=== PATIENT | female | born 1980 | race Caucasian/White ===

== ENCOUNTER 2019-09-09 09:15 | Outpatient (CLI) | payer MEDICAID, SELFPAY ==
--- NOTE | 2019-09-09 09:29 | MR_ITS ---
WS: [id number] MRI HEAD WITHOUT CONTRAST TECHNIQUE: Sagittal T1, T2 axial, T2 axial FLAIR, axial and coronal T1 images, axial susceptibility w eighted imaging, axial diffusion weighted images, and coronal T2 images were obtained. CLINICAL INFORMATION: DIZZINESS;HEADACHE COMPARISON: None. FINDINGS: No evidence of restricted diffusion to suggest acute ischemia. Ventricular system and basal cisterns are patent. Normal midline structures. Visualized upper cervical spine is normal. No suspicious intra cranial signal abnormalities. Normal camargo-white differentiation. No extra-axial fluid collections. Mi nimal low-lying cerebellar tonsils is incidental. Normal posterior fossa. Normal vascular flow voids at the skull base. Mild mucosal thickening in the paranasal sinuses involving the ethmoid air cells and maxillary sinuses. Mild Polypoid mucosal thicke gali in the maxillary sinuses. Mastoid air cells are well aerated. Temporal lobes and hippocampal for mations are normal in appearance. Normal optic chiasm and pituitary infundibulum. MR/MR head wo con* [id number] IMPRESSION: 1. No evidence of restricted diffusion to suggest acute ischemia. 2. No suspicious intracranial signal abnormalities. No hydrocephalus. 3. Mild mucosal thickening in the paranasal sinuses. Mastoid air cells are wel l aerated. 4. Temporal lobes and hippocampal formations are normal in appearance. 5. No hemosiderin on susceptibly weighted images.
== END 2019-09-09 09:16 | disposition home or self-care (01) ==
LOC: RADSHAW 09:25
PROVIDERS: Family Provider Family Medicine; PCP Family Medicine; Visit Provider Nurse Practitioner Family
DX: R42 Dizziness and giddiness (principal); R51 Headache
CPT/HCPCS: 70551

== ENCOUNTER → 2019-10-19 13:27 | Outpatient (BNVA) | payer MEDICAID, SELFPAY | PROVIDERS: Family Provider Family Medicine; PCP Family Medicine; Visit Provider Nurse Practitioner Family | DX: N39.0 Urinary tract infection, site not specified (principal) | CPT/HCPCS: 81003; 87804 ==

== ENCOUNTER → 2020-03-13 11:28 | Outpatient (BNVA) | payer MEDICAID, SELFPAY | PROVIDERS: Family Provider Family Medicine; PCP Family Medicine; Visit Provider Urology | DX: N39.0 Urinary tract infection, site not specified (principal) | CPT/HCPCS: 80053; 87077; 87086; 87186 ==

== ENCOUNTER 2020-05-23 12:34 | Outpatient (CLI) | payer MEDICAID, SELFPAY ==
--- NOTE | 2020-05-23 12:42 | XR_ITS ---
WS: [id number] KNEE RIGHT TECHNIQUE: 3 views of the right knee CLINICAL INFORMATION: RIGHT KNEE PAIN COMPARISON: None. FINDINGS: Osteopenia. Hypertrophic changes along the joint line. Hypertrophic patella. Prior screw tracts upper tibia. Sclerotic focus or methacrylate involving the proximal tibia. XR/XR knee RT 3V* [id number] IMPRESSION: 1. Osteopenia. 2. No acute fractures. 3. Moderate arthritis with medial and lateral compartment narrowing worse invo lving the lateral joint compartment. 4. No acute fractures.
== END 2020-05-23 12:35 | disposition home or self-care (01) ==
LOC: RADWPI 12:41
PROVIDERS: PCP Family Medicine; Visit Provider Nurse Practitioner Family
DX: M85.861 Other specified disorders of bone density and structure, right lower leg (principal); M17.11 Unilateral primary osteoarthritis, right knee
CPT/HCPCS: 73562

== ENCOUNTER → 2020-07-19 08:50 | Outpatient (BNVA) | payer MEDICAID, SELFPAY | PROVIDERS: PCP Internal Medicine; Referring Provider Nurse Practitioner Family; Visit Provider Specialist | DX: M25.532 Pain in left wrist (principal); R20.0 Anesthesia of skin; R20.2 Paresthesia of skin | CPT/HCPCS: 95908 ==

== ENCOUNTER 2020-12-17 02:34 | Emergency (ER) | payer MEDICAID, SELFPAY ==
[2020-12-17 02:50] VITALS: BP 103/70; PULSE 86; RESP 17; TEMP 36.6; O2SAT 100; BMI 38.2
[2020-12-17] MEDS: ondansetron 2 mg/ML SDV 2 mL 4 MG IVP ×2 (03:19→06:36)
[2020-12-17] MEDS: sodium chloride 0.9% 1,000 ML 999 ML IV (03:19)
--- NOTE | 2020-12-17 03:25 | ED_ITS ---
HPI - Abdominal Pain General: Chief Complaint: Abdominal Pain Stated Complaint: n/v/d stomach cramps Time Seen by Provider: 12/17/20 03:01 History of Present Illness: HPI narrative: 40-year-old female presenting with abdominal cramping, pain, vomiting and diarrhea for the past 2 days or so. She was worse tonight. She denies fever. No blood in the stool. She has a history of gastric bypass MD elicited complaint: abdominal pain Pertinent past history: other Onset (ago): day(s) Pain Consistency: constant Location: Diffuse and Epigastric Severity: moderate Quality: cramping Radiation: none Migration to: no migration Exacerbating factors: eating Relieving factors: nothing Associated Symptoms: Reports change in stool character, diarrhea, nausea and vomiting; Denies dysuria and fever(s) Related Data: Date of Last Menstrual Period: 11/30/20 Review of Systems Const: Denies: fever(s) Eyes: Denies: change in vision ENMT: Denies: odynophagia or sinus pain Card: Denies: chest pain, palpitations or irregular heart rhythm Resp: Denies: dyspnea, productive cough, non-productive cough or wheezing GI: Reports: nausea, vomiting, diarrhea and change in stool character : Denies: dysuria Musc: Denies: neck pain Skin/Breast: Denies: rash or erythema Neuro: Reports: headache(s); Denies: dizziness or vertigo Psych: Denies: anxiety PFS ED PFSH: Medical History (Updated 12/17/20 @ 04:33 by Sahil Roland DO) Recurrent UTI Social History (Updated 10/19/19 @ 13:26 by Otilia Hanson LPN) Smoking and tobacco status: current every day smoker Female Reproductive History: Date of last menstrual period: 11/30/20 Physical Exam Const: GENERAL APPEARANCE: well developed ORIENTATION/CONSCIOUSNESS: Yes oriented to person, Yes oriented to place and Yes oriented to time HENMT: COMMON NORMALS: normocephalic, external ears normal and Normal external nose present HEAD & SCALP: normocephalic FACE & SINUS: normal facial exam NOSE: Normal external nose present and No nasal discharge present EXTERNAL EAR: Yes external ears normal Eye: COMMON NORMALS: Equal, round and reactive pupils present, EOMs intact bilaterally and conjunctivae normal EYELID: eyelids normal CONJUNCTIVA: Yes conjunctivae normal PUPIL: Yes Equal, round and reactive pupils present Neck/C-Spine: GENERAL: No tracheal deviation Chest: COMMONS NORMALS: normal inspection of the chest CHEST: No tenderness Resp: COMMON NORMALS: clear to auscultation bilaterally EFFORT & INSPECTION: No tachypneic, No respiratory distress, No retractions, No uses accessory muscles and No tracheal deviation AUSCULTATION: clear to auscultation bilaterally, no rhonchi, no wheezes and lung sounds not diminished Cardio: COMMON NORMALS: regular rate and regular rhythm RATE: regular rate RHYTHM: regular rhythm HEART SOUNDS: no murmurs PERIPHERAL PULSES: radial pulses present GI: INSPECTION: No abdominal distension AUSCULTATION: No Hyperactive bowel sounds present and No Hypoactive bowel sounds present PALPATION: Yes Tenderness to palpation present (GI) (Epigastric), No Guarding due to palpation present (GI) and No Rigid due to palpation PERCUSSION: no dullness to percussion and no tympanic to percussion Neuro: SENSORIUM/ORIENTATION: Yes oriented to person, Yes oriented to place and Yes oriented to time Psych: COMMON NORMALS: mental status grossly normal Skin: COMMON NORMALS: no rashes or lesions noted GENERAL SKIN EXAM: no rashes or lesions noted Course Vital Signs: Vital signs: Vital Signs Temperature 97.8 F 12/17/20 02:50 Pulse Rate 86 12/17/20 02:50 Respiratory Rate 20 H 12/17/20 03:49 Blood Pressure 103/70 12/17/20 02:50 Pulse Oximetry 100 12/17/20 03:49 MDM - Abdominal Pain MDM Narrative: Medical decision making narrative: 40-year-old female with gastroenteritis type symptoms. Her labs are benign. She will be treated for this. She does have a urinary tract infection, and she will be treated for this as well. She will receive IV Rocephin here she has been vomiting. She will be prescribed antiemetic, and oral antibiotic for home. Lab Data: Labs: Lab Results 12/17/20 12/17/20 12/17/20 Range/Units 03:25 03:35 03:35 WBC 8.4 (4.0-10.0) 10^3/ uL RBC 5.44 H (4.1-5.3) 10^6/u L Hgb 12.6 (11.5-15.3) g/dL Hct 42.7 (37.0-47.0) % MCV 78.5 L (81-99) fL MCH 23.2 L (28.0-34.0) pg MCHC 29.5 L (30.0-36.0) g/dL RDW 18.4 H (12.1-15.1) % Plt Count 218 (130-400) 10^3/c mm MPV 10.5 H (7.4-10.4) fL Neut % (Auto) 81.5 % Lymph % (Auto) 8.1 % [place] % (Auto) 5.2 % Eos % (Auto) 4.4 % Baso % (Auto) 0.4 % Neut # (Auto) 6.88 (1.8-7.7) 10^3/u L Lymph # (Auto) 0.7 L (0.8-4.8) 10^3/u L [place] # (Auto) 0.4 (0.2-0.9) 10^3/u L Eos # (Auto) 0.4 (0.0-0.8) 10^3/u L Baso # (Auto) 0.0 (0.0-0.1) 10^3/u L Nucleated RBC % (a uto) 0 % Nucleated RBCs # 0.0 /100WBC Sodium 138 (136-145) mmol/L Potassium 4.6 (3.5-5.1) mmol/L Chloride 106 (98-107) mmol/L Carbon Dioxide 23 (22-29) mmol/L Anion Gap 13.6 (5-19) BUN 16 (6-20) mg/dL Creatinine 0.8 (0.5-0.9) mg/dL GFR Calculation 79.0 L (90-130) mL/min Glucose 116 H (65-115) mg/dL Calculated Osmolal ity 288 (285-295) mOsm/k g Calcium 8.0 L (8.5-10.5) mg/dL Total Bilirubin 0.4 (0.15-1.2) mg/dL AST 19 (0-32) U/L ALT 12 (0-33) U/L Alkaline Phosphata se 37 (35-105) IU/L C-Reactive Protein 1.0 (0.0-4.9) mg/L Total Protein 6.3 L (6.6-8.7) g/dL Albumin 4.0 (3.5-5.2) g/dL Globulin 2.3 (1.3-4.6) g/dL Lipase 33 (13-60) U/L HCG, Qual (Negative) Urine Color Yellow (Yellow) Urine Appearance Clear (CLEAR) Urine pH 5 (5-7) Ur Specific Gravit y 1.025 (1.005-1.030) Urine Protein Neg (Negative) Urine Glucose (UA) Norm (Normal) Urine Ketones Negative (Negative) Urine Blood Neg (Negative) Urine Nitrate Negative (Negative) Urine Bilirubin Neg (Negative) Urine Urobilinogen Norm (Negative) mg/dL Ur Leukocyte Halle ase 2+ H (Negative) Urine RBC 0-4 H (0-2) /hpf Urine WBC 10-15 H (0-5) /hpf Ur Squamous Epith Cells 25-40 H (0-5) /hpf Amorphous Sediment Not Reportable Urine Bacteria 1+ H (NONE) /hpf Urine Mucus 3+ /hpf 12/17/20 Range/Units 03:35 WBC (4.0-10.0) 10^3/ uL RBC (4.1-5.3) 10^6/u L Hgb (11.5-15.3) g/dL Hct (37.0-47.0) % MCV (81-99) fL MCH (28.0-34.0) pg MCHC (30.0-36.0) g/dL RDW (12.1-15.1) % Plt Count (130-400) 10^3/c mm MPV (7.4-10.4) fL Neut % (Auto) % Lymph % (Auto) % [place] % (Auto) % Eos % (Auto) % Baso % (Auto) % Neut # (Auto) (1.8-7.7) 10^3/u L Lymph # (Auto) (0.8-4.8) 10^3/u L [place] # (Auto) (0.2-0.9) 10^3/u L Eos # (Auto) (0.0-0.8) 10^3/u L Baso # (Auto) (0.0-0.1) 10^3/u L Nucleated RBC % (a uto) % Nucleated RBCs # /100WBC Sodium (136-145) mmol/L Potassium (3.5-5.1) mmol/L Chloride (98-107) mmol/L Carbon Dioxide (22-29) mmol/L Anion Gap (5-19) BUN (6-20) mg/dL Creatinine (0.5-0.9) mg/dL GFR Calculation (90-130) mL/min Glucose (65-115) mg/dL Calculated Osmolal ity (285-295) mOsm/k g Calcium (8.5-10.5) mg/dL Total Bilirubin (0.15-1.2) mg/dL AST (0-32) U/L ALT (0-33) U/L Alkaline Phosphata se (35-105) IU/L C-Reactive Protein (0.0-4.9) mg/L Total Protein (6.6-8.7) g/dL Albumin (3.5-5.2) g/dL Globulin (1.3-4.6) g/dL Lipase (13-60) U/L HCG, Qual Negative (Negative) Urine Color (Yellow) Urine Appearance (CLEAR) Urine pH (5-7) Ur Specific Gravit y (1.005-1.030) Urine Protein (Negative) Urine Glucose (UA) (Normal) Urine Ketones (Negative) Urine Blood (Negative) Urine Nitrate (Negative) Urine Bilirubin (Negative) Urine Urobilinogen (Negative) mg/dL Ur Leukocyte Halle ase (Negative) Urine RBC (0-2) /hpf Urine WBC (0-5) /hpf Ur Squamous Epith Cells (0-5) /hpf Amorphous Sediment Urine Bacteria (NONE) /hpf Urine Mucus /hpf Discharge Plan Discharge Patient Disposition: Home Clinical Impression: Recurrent UTI, Gastroenteritis Condition: Stable Prescriptions: New Bactrim DS 800-160 mg tablet 1 tab PO BID 7 Days Qty: 14 RF: 0 Zofran 4 mg tablet 4 mg PO Q6H PRN (Reason: nausea and vomiting) Qty: 10 RF: 0 hydrocodone-acetaminophen 5-325 mg tablet 1 tab PO Q8H PRN (Reason: pain) Qty: 7 RF: 0 No Action fluticasone propionate 50 mcg/actuation spray,suspension 1 spray INTRANASAL DAILY RF: 0 loratadine [Claritin] 10 mg tablet 10 mg PO DAILY RF: 0 cephalexin 500 mg capsule 500 mg PO TID Qty: 90 RF: 3 Discharge Orders: Discharge ED (Routine); Ordered 12/17/20 Ordered By: Sahil Roland Referrals: Augustina Payne DO [Primary Care Provider] - 4-7 days Patient Instructions: Urinary Tract Infection in Women (ED), Gastroenteritis (ED), Opioid Safety Activity Restrictions/Additional Instructions: Return for worsening pain despite treatment, vomiting liquids or medications despite treatment, fever despite 3-4 doses of antibiotics, any other concerning symptoms. Coding Level of Care Code ED Production Staff Worker for Chg Fwd Exam Comprehensive
[2020-12-17 03:49] VITALS: RESP 20; O2SAT 100
[2020-12-17] MEDS: HYDROmorphone 1 mg/mL INJ 1 mL IVP (03:49)
[2020-12-17 03:50] LABS: Basophils % 0.4 %; Eosinophils # 0.4 10^3/uL (0.0-0.8); Eosinophils % 4.4 %; Hematocrit 42.7 % (37.0-47.0); Hemoglobin 12.6 g/dL (11.5-15.3); Lymphocytes # 0.7 10^3/uL (0.8-4.8); Lymphocytes % 8.1 %; Mean Corpuscular HGB Conc 29.5 g/dL (30.0-36.0); Mean Corpuscular Hemoglobin 23.2 pg (28.0-34.0); Mean Corpuscular Volume 78.5 fL (81-99); Mean Platelet Volume 10.5 fL (7.4-10.4); Monocytes # 0.4 10^3/uL (0.2-0.9); Monocytes % 5.2 %; Neutrophils # 6.88 10^3/uL (1.8-7.7); Neutrophils % 81.5 %; Nucleated Red Blood Cells % 0 %; Platelet Count 218 10^3/cmm (130-400); Red Blood Count 5.44 10^6/uL (4.1-5.3); Red Cell Distribution Width 18.4 % (12.1-15.1); White Blood Count 8.4 10^3/uL (4.0-10.0)
[2020-12-17 04:02] LABS: HCG, Serum Qual Negative (Negative)
[2020-12-17 04:08] LABS: Alanine Aminotransferase 12 U/L (0-33); Alkaline Phosphatase 37 IU/L (35-105); Blood Urea Nitrogen 16 mg/dL (6-20); Carbon Dioxide 23 mmol/L (22-29); Chloride 106 mmol/L (98-107); Globulin 2.3 g/dL (1.3-4.6); Glucose 116 mg/dL (65-115); Lipase 33 U/L (13-60); Osmolality Calculated 288 mOsm/kg (285-295); Sodium 138 mmol/L (136-145); Total Bilirubin 0.4 mg/dL (0.15-1.2); Total Protein 6.3 g/dL (6.6-8.7)
[2020-12-17 04:22] LABS: Anion Gap 13.6 (5-19); Aspartate Amino Transferase 19 U/L (0-32); Potassium 4.6 mmol/L (3.5-5.1)
[2020-12-17 04:23] LABS: Add Urine Microscopic? YES; Bilirubin Urine Neg (Negative); Blood Urine Neg (Negative); Glucose Urine UA Norm (Normal); Ketones Urine Negative (Negative); Leukocyte Esterase Urine 2+ (Negative); Nitrate Urine Negative (Negative); Protein Urine Neg (Negative); Specific Gravity, Urine 1.025 (1.005-1.030); Urine Appearance Clear (CLEAR); Urine Color Yellow (Yellow); Urobilinogen Urine Norm (Negative); pH Urine 5 (5-7)
[2020-12-17 04:28] LABS: Add Urine Culture? No; Bacteria Urine 1+ /hpf; Mucus Urine 3+ /hpf; RBC Urine 0-4 /hpf (0-2); Squamous Epithelial Cell Urine 25-40 /hpf (0-5)
[2020-12-17] MEDS: cefTRIAXone 1,000 MG in sodium chloride 0.9% (plus) 50 ML 100 MG IV (04:51)
--- NOTE | 2020-12-17 05:29 | XRR_ITS ---
PROCEDURE INFORMATION: Exam: XR Right Wrist Exam date and time: 12/17/2020 5:29 AM Age: 40 years old Clinical indication: Pain; Wrist; Right; Additional info: Wrist pain TECHNIQUE: Imaging protocol: XR Right wrist. Views: 3 or more views. COMPARISON: No relevant prior studies available. FINDINGS: Bones/joints: Normal. Soft tissues: Normal. XR/XR wrist RT min 3V* [id number] IMPRESSION: No significant abnormality.
[2020-12-17 06:37] VITALS: BP 129/86; PULSE 80; RESP 18; O2SAT 98
== END 2020-12-17 06:38 | disposition home or self-care (01) ==
PROVIDERS: Emergency Provider Emergency Medicine; PCP Internal Medicine
DX: K52.9 Noninfective gastroenteritis and colitis, unspecified (principal); N39.0 Urinary tract infection, site not specified; Z87.440 Personal history of urinary (tract) infections; F17.210 Nicotine dependence, cigarettes, uncomplicated
CPT/HCPCS: 73110; 80053; 81001; 83690; 84703; 85025; 86140; 96365; 96375; 96376; 99283; J0696; J1170; J2405; J7030

== ENCOUNTER 2021-01-29 09:01 | Outpatient (CLI) | payer MEDICAID, SELFPAY ==
--- NOTE | 2021-01-29 09:24 | MM_ITS ---
WS: [id number] Exam: [id number] Date/Time of Exam: 01/29/2021 9:24 AM Reason For Exam: SCREENING VIEWS: MLO and CC views both breasts. No priors. Findings: There was no sign of mass, architectural distortion or suspicious calcification in either breast. Sc attered fibroglandular densities. MM/[id number] Impression: BI-RADS: 2-Benign FOLLOW-UP: 1 Year Follow-up This mammogram was also analyzed by the Computer Aided Detection System R2 Imag e Radio Tester.
== END 2021-01-29 09:02 | disposition home or self-care (01) ==
LOC: RADSHAW 09:03
PROVIDERS: PCP Nurse Practitioner Family; Visit Provider Nurse Practitioner Family
DX: Z12.31 Encounter for screening mammogram for malignant neoplasm of breast (principal)
CPT/HCPCS: 77067

== ENCOUNTER → 2021-04-16 13:16 | Outpatient (BNVA) | payer MEDICAID, SELFPAY | PROVIDERS: PCP Nurse Practitioner Family; Visit Provider Surgery | DX: E88.81 Metabolic syndrome and other insulin resistance (principal); Z98.84 Bariatric surgery status | CPT/HCPCS: 80053; 80061; 82310; 82607; 82728; 82746; 83550; 83735; 83970; 84100; 84443; 85025; 85610 ==

== ENCOUNTER 2021-05-06 09:09 | Emergency (ER) | payer MEDICAID, SELFPAY ==
[2021-05-06 09:19] VITALS: BP 128/75; PULSE 74; RESP 16; TEMP 36.3; O2SAT 97; BMI 37.5
[2021-05-06 09:27] VITALS: BP 128/75; PULSE 81; RESP 18; O2SAT 97
--- NOTE | 2021-05-06 09:31 | XRR_ITS ---
PROCEDURE INFORMATION: Exam: XR Chest Exam date and time: 05/06/2021 9:31 AM Age: 41 years old Clinical indication: Pain; Left-sided; Additional info: L upper back pain TECHNIQUE: Imaging protocol: XR of the chest. Views: 1 view. COMPARISON: No relevant prior studies available. FINDINGS: Lungs: Unremarkable. No consolidation. Pleural spaces: Unremarkable. No pleural effusion. No pneumothorax. Heart/Mediastinum: Unremarkable. No cardiomegaly. Bones/joints: Unremarkable. XR/XR chest 1V portable [id number] IMPRESSION: No acute findings.
--- NOTE | 2021-05-06 09:31 | ECG_ITS ---
[facility] Test Date: 2021-05-06 Pat Name: Loulou Hendrix Department: Room: Gender: Female Director Of Counterintelligence: : 1980 Requested By: Doreen Izquierdo Order Number: [id number] Hernandez MD: Deandre Khalil M.D. Measurements Intervals [place] Rate: 66 P: 67 MD: 172 QRS: 15 QRSD: 84 T: 31 QT: 373 QTc: 391 Interpretive Statements SINUS RHYTHM No previous ECG available for comparison Electronically Signed On 05-06-2021 19:47:00 CDT by Deandre Khalil M.D. [email or web address]
--- NOTE | 2021-05-06 09:35 | ED_ITS ---
HPI - General Adult General: Chief complaint: General Medical Stated complaint: fatigue, dry throat, confusion, dark urine Time Seen by Provider: 05/06/21 09:19 History of Present Illness: HPI narrative: Onset:[] Duration:[] Location:[] Severity:[] Review of Systems Narrative: Constitutional: No fever, no chills. HEENT: No vision changes CV: No chest pain, no palpitations PULM: no cough, no dyspnea. GI: No abdominal pain, no N/V/D. : No dysuria MSKEL: No muscle pain SKIN: No new rashes, no lesions. NEURO: No headache, no focal weakness. HEME: No visible bruises PSYCH: Normal mood PFSH ED PFSH: Medical History Recurrent UTI Social History Smoking and tobacco status: former smoker Female Reproductive History: Date of last menstrual period: 11/30/20 Physical Exam Narrative: EXAM NARRATIVE: Head: Atraumatic Eyes: PERRL, conjunctiva without injection ENT: Mucous membrane moist NECK: Supple, ROM intact LUNGS: LCTAB, no crackles/rhonchi CV: RRR ABDOMEN: Soft, nontender in all quadrants EXTREMITY: Normal ROM SKIN: No rash or erythema NEURO: Awake and alert, no focal motor deficits PSYCH: Normal mood and affect Course Vital Signs: Vital signs: Vital Signs Temperature 97.3 F L 05/06/21 09:19 Pulse Rate 81 05/06/21 09:27 Respiratory Rate 18 05/06/21 09:27 Blood Pressure 128/75 05/06/21 09:27 Pulse Oximetry 97 05/06/21 09:27 Discharge Plan Discharge Prescriptions: No Action loratadine [Claritin] 10 mg tablet 10 mg PO DAILY RF: 0 potassium gluconate 595 mg (99 mg) tablet 595 mg PO DAILY RF: 0 cholecalciferol (vitamin D3) 25 mcg (1,000 unit) capsule 25 mcg PO DAILY RF: 0 B12 5,000-100 mcg lozenge sublingual RF: 0 cyclobenzaprine 10 mg tablet 10 mg PO TID RF: 0 omeprazole 20 mg capsule,delayed release(DR/EC) 20 mg PO DAILY RF: 0 ferrous sulfate [Iron (ferrous sulfate)] PO RF: 0 Coding Level of Care Code ED Medical Assistant Ob Gyn for Joshua Matute
--- NOTE | 2021-05-06 09:38 | ED_ITS ---
HPI - General Adult General: Chief complaint: General Medical Stated complaint: fatigue, dry throat, confusion, dark urine Time Seen by Provider: 05/06/21 09:19 History of Present Illness: HPI narrative: Patient is a 41-year-old female with history of prior E. coli UTI, gastric bypass presented to the emergency room with complaints of feeling tired and weak with a sore throat and cough since Friday. Patient tells me that she interacted with her nephew who had a cold and began developing the symptoms soon after. In addition, patient reports loose stool. Denies melena or hematochezia. Denies any dysuria/polyuria/hematuria. Patient denies that her urine appears to be more dark today. She has been able to tolerate p.o. without difficulty. Denies any nausea/vomiting. Patient has no focal abdominal pain, chest pain or shortness of breath. Patient reports left sided upper back pain as the onset of symptoms. Denies any exertional or pleuritic chest pain. Patient was tested for Covid 2 days ago and result was negative. Onset:3 days ago Duration:3 days Location:home Severity:mild Review of Systems Narrative: Constitutional: No fever, no chills. +fatigue, +generalized weakness HEENT: No vision changes CV: No chest pain, no palpitations PULM: +cough, no dyspnea. GI: No abdominal pain, no N/V/D. +loose stool : No dysuria, +dark urine MSKEL: No muscle pain SKIN: No new rashes, no lesions. NEURO: No headache, no focal weakness. HEME: No visible bruises PSYCH: Normal mood BACK:+upper back pain PFSH ED PFSH: Medical History Recurrent UTI Social History Smoking and tobacco status: former smoker Female Reproductive History: Date of last menstrual period: 11/30/20 Physical Exam Narrative: EXAM NARRATIVE: Head: Atraumatic Eyes: PERRL, conjunctiva without injection ENT: Mucous membrane moist NECK: Supple, ROM intact LUNGS: LCTAB, no crackles/rhonchi CV: RRR ABDOMEN: Soft, nontender in all quadrants no guarding or rebound tenderness EXTREMITY: Normal ROM SKIN: No rash or erythema NEURO: Awake and alert, no focal motor deficits PSYCH: Normal mood and affect BACK:+ Left upper irritant mildly tender to palpation. Course Vital Signs: Vital signs: Vital Signs Temperature 97.3 F L 05/06/21 09:19 Pulse Rate 69 05/06/21 11:09 Respiratory Rate 18 05/06/21 11:09 Blood Pressure 128/58 05/06/21 11:09 Pulse Oximetry 97 05/06/21 11:09 MDM - General Adult MDM Narrative: Medical decision making narrative: Patient is a 41-year-old female who presents the emergency room with generalized weakness, fatigue, sore throat, cough, loose stool since Friday. Patient has had 1 negative Covid test. On exam, patient is hemodynamically stable without any focal findings. EKG showing regular sinus rhythm at HT of [66]. Normal axis. No ST elevations/depressions to suggest coronary occlusion. Normal MI, QRS, QT interv als. Work-up today including EKG, XR, labs and urine are within normal limit. Patient received 1 L of saline reports feeling better. Patient tolerated p.o. in the emergency room. Patient has no signs of respiratory distress. I have offered patient other Covid test and patient agrees to test today. Disposition: Discharge. I have given patient strict follow-up primary care provider next 24 to 48 hours. Should patient have any symptoms of shortness of breath, fever/chills, dehydration, inability to tolerate p.o., any new complaints to come back to the emergency room. Patient verbalized understanding discussed. Lab Data: Labs: Lab Results 05/06/21 05/06/21 05/06/21 Range/Units 09:59 09:59 09:59 WBC 7.5 (4.0-10.0) 10^3/ uL RBC 4.32 (4.1-5.3) 10^6/u L Hgb 12.4 (11.5-15.3) g/dL Hct 38.8 (37.0-47.0) % MCV 89.8 (81-99) fl MCH 28.7 (28.0-34.0) pg MCHC 32.0 (30.0-36.0) g/dL RDW 13.0 (12.1-15.1) % Plt Count 203 (130-400) 10^3/c mm MPV 10.0 (7.4-10.4) fL Neut % (Auto) 60.4 % Lymph % (Auto) 21.9 % [place] % (Auto) 7.0 % Eos % (Auto) 9.7 % Baso % (Auto) 0.7 % Neut # (Auto) 4.56 (1.8-7.7) 10^3/u L Lymph # (Auto) 1.7 (0.8-4.8) 10^3/u L [place] # (Auto) 0.5 (0.2-0.9) 10^3/u L Eos # (Auto) 0.7 (0.0-0.8) 10^3/u L Baso # (Auto) 0.1 (0.0-0.1) 10^3/u L Nucleated RBC % (a uto) 0 % Nucleated RBCs # 0.0 /100WBC Sodium 137 (136-145) mmol/L Potassium 4.3 (3.5-5.1) mmol/L Chloride 105 (98-107) mmol/L Carbon Dioxide 23 (22-29) mmol/L Anion Gap 13.3 (5-19) BUN 12 (6-20) mg/dL Creatinine 0.8 (0.5-0.9) mg/dL GFR Calculation 78.7 L (90-130) mL/min Glucose 98 (65-115) mg/dL Calculated Osmolal ity 284 L (285-295) mOsm/k g Calcium 8.6 (8.5-10.5) mg/dL Total Bilirubin 0.2 (0.15-1.2) mg/dL AST 16 (0-32) U/L ALT 15 (0-33) U/L Alkaline Phosphata se 45 (35-105) IU/L Troponin T Gen 5 n g/L (0-10) ng/L Total Protein 6.6 (6.6-8.7) g/dL Albumin 3.8 (3.5-5.2) g/dL Globulin 2.8 (1.3-4.6) g/dL Lipase 37 (13-60) U/L Ser , Curtis i-Qnt 0.50 mIU/mL Urine Color (Yellow) Urine Appearance (CLEAR) Urine pH (5-7) Ur Specific Gravit y (1.005-1.030) Urine Protein (Negative) Urine Glucose (UA) (Normal) Urine Ketones (Negative) Urine Blood (Negative) Urine Nitrate (Negative) Urine Bilirubin (Negative) Urine Urobilinogen (Negative) mg/dL Ur Leukocyte Halle ase (Negative) Urine RBC (0-2) /hpf Urine WBC (0-5) /hpf Ur Squamous Epith Cells (0-5) /hpf Amorphous Sediment Urine Bacteria (NONE) /hpf Urine Mucus /hpf 05/06/21 05/06/21 Range/Units 09:59 09:59 WBC (4.0-10.0) 10^3/ uL RBC (4.1-5.3) 10^6/u L Hgb (11.5-15.3) g/dL Hct (37.0-47.0) % MCV (81-99) fl MCH (28.0-34.0) pg MCHC (30.0-36.0) g/dL RDW (12.1-15.1) % Plt Count (130-400) 10^3/c mm MPV (7.4-10.4) fL Neut % (Auto) % Lymph % (Auto) % [place] % (Auto) % Eos % (Auto) % Baso % (Auto) % Neut # (Auto) (1.8-7.7) 10^3/u L Lymph # (Auto) (0.8-4.8) 10^3/u L [place] # (Auto) (0.2-0.9) 10^3/u L Eos # (Auto) (0.0-0.8) 10^3/u L Baso # (Auto) (0.0-0.1) 10^3/u L Nucleated RBC % (a uto) % Nucleated RBCs # /100WBC Sodium (136-145) mmol/L Potassium (3.5-5.1) mmol/L Chloride (98-107) mmol/L Carbon Dioxide (22-29) mmol/L Anion Gap (5-19) BUN (6-20) mg/dL Creatinine (0.5-0.9) mg/dL GFR Calculation (90-130) mL/min Glucose (65-115) mg/dL Calculated Osmolal ity (285-295) mOsm/k g Calcium (8.5-10.5) mg/dL Total Bilirubin (0.15-1.2) mg/dL AST (0-32) U/L ALT (0-33) U/L Alkaline Phosphata se (35-105) IU/L Troponin T Gen 5 n g/L 6 (0-10) ng/L Total Protein (6.6-8.7) g/dL Albumin (3.5-5.2) g/dL Globulin (1.3-4.6) g/dL Lipase (13-60) U/L Ser , Curtis i-Qnt mIU/mL Urine Color Dark yellow (Yellow) Urine Appearance Clear (CLEAR) Urine pH 5 (5-7) Ur Specific Gravit y 1.020 (1.005-1.030) Urine Protein Neg (Negative) Urine Glucose (UA) Norm (Normal) Urine Ketones 1+ H (Negative) Urine Blood Neg (Negative) Urine Nitrate Negative (Negative) Urine Bilirubin 1+ H (Negative) Urine Urobilinogen 1 H (Negative) mg/dL Ur Leukocyte Halle ase 2+ H (Negative) Urine RBC None (0-2) /hpf Urine WBC 15-25 H (0-5) /hpf Ur Squamous Epith Cells 0-4 H (0-5) /hpf Amorphous Sediment Not Reportable Urine Bacteria 1+ H (NONE) /hpf Urine Mucus Trace /hpf Imaging Data^: Other Imaging: Radiologist's impression: Loulou Hendrix 41 F [address] [address]FN[place] ReportSigned Patient: Loulou Hendrix #: [id number]: 1980Acct#:[id number]/Sex: 41 / FADM Date: 05/06/21Loc: ERRoom/Bed:Attending Dr: Ordering Provider/Ordering MD: Doreen Izquierdo MD Date of Service: 05/06/21 Procedure(s): XR chest 1V portable [id number] Accession Number(s): [id number] Report Number: [id number] PROCEDURE INFORMATION: Exam: XR Chest Exam date and time: 05/06/2021 9:31 AM Age: 41 years old Clinical indication: Pain; Left-sided; Additional info: L upper back pain TECHNIQUE: Imaging protocol: XR of the chest. Views: 1 view. COMPARISON: No relevant prior studies available. FINDINGS: Lungs: Unremarkable. No consolidation. Pleural spaces: Unremarkable. No pleural effusion. No pneumothorax. Heart/Mediastinum: Unremarkable. No cardiomegaly. Bones/joints: Unremarkable. XR/XR chest 1V portable [id number] IMPRESSION: No acute findings. Dictated By:Jun Cosme DOSigned By:Jun Cosme Date/Ti me:05/06/21 1102DD/ 1100 Discharge Plan Discharge Patient Disposition: Home Clinical Impression: Cough, Fatigue, Loose stools Condition: Stable Prescriptions: No Action loratadine [Claritin] 10 mg tablet 10 mg PO DAILY RF: 0 potassium gluconate 595 mg (99 mg) tablet 595 mg PO DAILY RF: 0 cholecalciferol (vitamin D3) 25 mcg (1,000 unit) capsule 25 mcg PO DAILY RF: 0 B12 5,000-100 mcg lozenge sublingual RF: 0 cyclobenzaprine 10 mg tablet 10 mg PO TID RF: 0 omeprazole 20 mg capsule,delayed release(DR/EC) 20 mg PO DAILY RF: 0 ferrous sulfate [Iron (ferrous sulfate)] PO RF: 0 Discharge Orders: Discharge ED (Routine); Ordered 05/06/21 Ordered By: Doreen Izquierdo Referrals: Gnii Driscoll FNP [Primary Care Provider] - Discharge Diet: Advance as tolerated Discharge Activity: Resume usual activity Patient Instructions: Acute Cough (ED) Activity Restrictions/Additional Instructions: Please follow up with your pcp for reevaluation in the next 24-48 hrs. Come back to the ED if your symptoms worsen or if you have any new or concernig issues. Coding Level of Care Code ED Expediter Service Order for Joshua Matute
[2021-05-06 10:08] LABS: Basophils # 0.1 10^3/uL (0.0-0.1); Basophils % 0.7 %; Eosinophils # 0.7 10^3/uL (0.0-0.8); Eosinophils % 9.7 %; Hematocrit 38.8 % (37.0-47.0); Hemoglobin 12.4 g/dL (11.5-15.3); Lymphocytes # 1.7 10^3/uL (0.8-4.8); Lymphocytes % 21.9 %; Mean Corpuscular Hemoglobin 28.7 pg (28.0-34.0); Mean Corpuscular Volume 89.8 fl (81-99); Monocytes # 0.5 10^3/uL (0.2-0.9); Neutrophils # 4.56 10^3/uL (1.8-7.7); Neutrophils % 60.4 %; Nucleated Red Blood Cells % 0 %; Platelet Count 203 10^3/cmm (130-400); Red Blood Count 4.32 10^6/uL (4.1-5.3); White Blood Count 7.5 10^3/uL (4.0-10.0)
[2021-05-06] MEDS: sodium chloride 0.9% 1,000 ML 999 ML IV (10:16)
[2021-05-06 10:20] VITALS: BP 118/62; PULSE 69; RESP 18; O2SAT 95
[2021-05-06 10:35] LABS: Troponin T (5th) Once 6 ng/L (0-10)
[2021-05-06 10:38] LABS: Alanine Aminotransferase 15 U/L (0-33); Albumin Level 3.8 g/dL (3.5-5.2); Alkaline Phosphatase 45 IU/L (35-105); Anion Gap 13.3 (5-19); Aspartate Amino Transferase 16 U/L (0-32); Blood Urea Nitrogen 12 mg/dL (6-20); Calcium 8.6 mg/dL (8.5-10.5); Carbon Dioxide 23 mmol/L (22-29); Chloride 105 mmol/L (98-107); Creatinine Clr Calc Pharmacy 116.4245; Globulin 2.8 g/dL (1.3-4.6); Glomerular Filtration Rate 78.7 mL/min (90-130); Glucose 98 mg/dL (65-115); Lipase 37 U/L (13-60); Osmolality Calculated 284 mOsm/kg (285-295); Potassium 4.3 mmol/L (3.5-5.1); Sodium 137 mmol/L (136-145); Total Bilirubin 0.2 mg/dL (0.15-1.2); Total Protein 6.6 g/dL (6.6-8.7)
[2021-05-06 10:49] LABS: Urine Appearance Clear (CLEAR); Urine Color Dark Yellow (Yellow); pH Urine 5 (5-7)
[2021-05-06 10:51] LABS: Blood Urine Neg (Negative); Glucose Urine UA Norm (Normal); Ketones Urine 1+ (Negative); Nitrate Urine Negative (Negative); Protein Urine Neg (Negative)
[2021-05-06 10:52] LABS: Add Urine Culture? Yes; Add Urine Microscopic? YES; Bacteria Urine 1+ /hpf; Bilirubin Urine 1+ (Negative); Leukocyte Esterase Urine 2+ (Negative); Mucus Urine TRACE /hpf; Squamous Epithelial Cell Urine 0-4 /hpf (0-5); Urobilinogen Urine 1 mg/dL (Negative); WBC Urine 15-25 /hpf (0-5)
[2021-05-06 11:02] VITALS: BP 118/58; PULSE 67; RESP 18; O2SAT 97
[2021-05-06 11:09] VITALS: BP 128/58; PULSE 69; RESP 18; O2SAT 97
[2021-05-07 14:55] LABS: Coronavirus Test Green County Not Detected
--- NOTE | 2021-05-07 17:59 | PC.NURSE ---
Patient notified of covid results at this time
--- NOTE | 2021-05-09 09:06 | DCPLANNER ---
research development manager had message to speak with patient about getting established with a primary care physician. research development manager spoke with patient, she stated that she has a primary care physician, and she has an appointment scheduled.
== END 2021-05-06 11:09 | disposition home or self-care (01) ==
PROVIDERS: Emergency Provider Emergency Medicine; PCP Nurse Practitioner Family
DX: R53.83 Other fatigue (principal); R05 Cough; R19.7 Diarrhea, unspecified; Z87.891 Personal history of nicotine dependence; Z20.822 Contact with and (suspected) exposure to COVID-19
CPT/HCPCS: 71045; 80053; 81001; 83690; 84484; 84702; 85025; 87086; 87635; 93005; 96360; 99284; J7030

== ENCOUNTER 2021-06-06 07:55 | Outpatient (CLI) | payer MEDICAID, SELFPAY ==
--- NOTE | 2021-06-06 08:13 | FL_ITS ---
WS: [id number] UPPER GI TECHNICAL: Double contrast upper GI FLUOROSCOPY TIME: 2.4 minutes CLINICAL INFORMATION: Z98.84 - Bariatric surgery status COMPARISON: None. FINDINGS: Swallowing: Normal. Esophagus: Mild esophageal dysmotility. Normal emptying. No high-grade stricture. Gastroesophageal reflux: Moderate reflux in the upright and supine imaging to the upper thoracic esop hagus. Esophagitis distal esophagus. Small esophageal hiatal hernia. Stomach: Prior postoperative changes gastric bypass. Normal filling of the gastric pouch and Shanthi jain b. Excluded stomach is small-volume left upper quadrant. Small gastric antrum diverticulum. Rugal thi ckening compatible with gastritis. Normal stomach emptying. Duodenum: Normal duodenal C-loop. Other findings: None. [place] upper GI series [id number] IMPRESSION: 1. Prior postoperative changes Shanthi-en-Y gastric bypass. 2. Small excluded stomach in the left upper quadrant. Normal filling of the Ro ux limb. Normal filling of the gastric pouch. 3. Moderate reflux in the upright and supine imaging to the upper thoracic eso phagus. 4. Evidence of esophagitis and gastritis. Small esophageal hiatal hernia. 5. Small gastric antrum diverticulum.
== END 2021-06-06 07:56 | disposition home or self-care (01) ==
PROVIDERS: PCP Nurse Practitioner Family; Visit Provider Surgery
DX: Z98.84 Bariatric surgery status (principal); K31.4 Gastric diverticulum; K44.9 Diaphragmatic hernia without obstruction or gangrene; K21.9 Gastro-esophageal reflux disease without esophagitis
CPT/HCPCS: 74240

== ENCOUNTER → 2021-08-10 15:29 | Outpatient (BNVA) | payer MEDICAID, SELFPAY | PROVIDERS: PCP Nurse Practitioner Family; Visit Provider Surgery | DX: Z11.52 Encounter for screening for COVID-19 (principal) | CPT/HCPCS: 87635 ==

== ENCOUNTER 2021-08-15 08:13 | Day surgery (SDC) | payer MEDICAID, SELFPAY ==
[2021-08-13 14:20] VITALS: BMI 41.0
--- NOTE | 2021-08-15 09:01 | W.PM.OPSFHP ---
Same Day Surgery H&P Indication for Procedure/HPI DATE OF PROCEDURE: August 15, 2021 CHIEF COMPLAINT/INDICATIONFOR SURGICAL PROCEDURE: Weight regain status post gastric bypass PREOP DIAGNOSIS: Esophagitis and gastritis PLANNED PROCEDRUE: Operation Date: 08/15/21 09:30 Proposed Procedures p EGD 43633 Z98.84 K21.9(Not Applicable) - Connor Harden MD 04/11/2021 This is a pleasant 42 years old female patient morbidly obese with a current weight of 250 pounds and a BMI 40.3. Patient had open Shanthi-en-Y gastric bypass per her description back in [place] 2007. With initial weight of 349 pounds and she lost all the weight 217 pounds. Patient overall is experiencing weight regain and she comes today concerned about that and seeking potential advice. No available operative report for details of surgery. Patient does not recall when was her last bariatric panel was done. Interim history 06/28/2021 Patient comes today for follow-up status post upper GI study that did show 1. Prior postoperative changes Shanthi-en-Y gastric bypass. 2. Small excluded stomach in the left upper quadrant. Normal filling of the Shanthi limb. Normal filling of the gastric pouch. 3. Moderate reflux in the upright and supine imaging to the upper thoracic esophagus. 4. Evidence of esophagitis and gastritis. Small esophageal hiatal hernia. 5. Small gastric antrum diverticulum. Full bariatric panel was done patient was found to have her vitamin B12 exceeding 2000 H. Otherwise insignificant values yet there is a lower folate level still within normal limits. And HDL of 53 which is low. Patient's current weight of 40 pounds and a BMI of 37.5 as her original concern is weight regain status post open gastric bypass Interim history 2021-08-15 Patient comes today for diagnostic EGD ROS All systems have been reviewed negative except as per the above or per problem list Medications/Allergies* Home Medications Medication Instructions Recorded Confirmed Type loratadine 10 mg tablet 10 mg PO DAILY 10/19/19 08/15/21 History omeprazole 20 mg capsule,delayed 20 mg PO DAILY 04/11/21 08/15/21 History release trazodone 50 mg PO PRN PRN 08/13/21 08/15/21 History Allergies/Adverse Reactions Allergy/AdvReac Type Severity Reaction Status Date / Time No Known Drug Allergies Allergy Unknown Verified 08/15/21 10:23 Pertinent History/Comorbid Conditions* Medical History (Updated 05/14/21 @ 00:01 by ) Recurrent UTI Pertinent Exam Findings alert, oriented x 3 and procedure specific exam findings (Abdominal examination nontender nondistended soft) Recommendations Surgery/Procedure today (EGD with possible biopsy) Other Plans: Plan of care; After thorough history and physical examination and reviewing the chart, plan to perform a diagnostic esophagogastroduodenoscopy (technically speaking it is an EsophagogastroJejunoscopy status post open Shanthi-en-Y gastric bypass )with possible biopsy in the GI lab. I discussed with the patient in detail the risk,benefits,alternatives and indications.The risk of aspiration, bleeding, soft tissue injury, perforation of the stomach/esophagus and other potential concomitant complications were explained to the patient in details,aslo the potential need for Thoracic and or Abdominal surgery to repair any complications.The patient understood this well and did agree to proceed. Rationale was carefully and clearly discussed with the patient.Appropriate informed consent have been reviewed and signed All questions have been answered and all concerns have been addressed to patient's satisfaction. Coding Level of Care Code Acute Alcoholic Counselor for Joshua Matute
--- NOTE | 2021-08-15 09:34 | ANES.PREANE2 ---
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
[2021-08-15 09:57] VITALS: BP 109/79; PULSE 75; RESP 16; TEMP 36.2; O2SAT 99
[2021-08-15] MEDS: sodium chloride 0.9% 1,000 ML 30 ML IV (10:34)
[2021-08-15 11:08] VITALS: BP 107/67; PULSE 74; RESP 15; TEMP 36.1; O2SAT 97
[2021-08-15 11:26] VITALS: BP 105/77; PULSE 60; RESP 16; O2SAT 97
--- NOTE | 2021-08-15 11:50 | PC.NURSE ---
After rising from the bed pt c/o epigastric pain, had a bowel movement. Informed Dr. Harden who discussed the pain with pt and gave verbal order for one time dose of Gaviscon or Maalox 30 ml
[2021-08-15] MEDS: alum-mag-hydroxide-sime 30 mL UDC PO (11:58)
--- NOTE | 2021-08-15 13:39 | ANE.PACU2 ---
Inpatient post-anesthesia follow up: Airway intact: Yes Vital signs: Temperature 97.0 F Pulse Rate 60 Respiratory Rate 16 Blood Pressure 105/77 Pulse Oximetry 97 Oxygen Delivery Me thod Room Air Oxygen Flow Rate Fraction of Inspir ed Oxygen Hydration adequate: Yes Nausea and vomiting: No Pain level: 2 Mental status: Baseline
== END 2021-08-15 12:10 | disposition home or self-care (01) ==
PROVIDERS: PCP Nurse Practitioner Family; Visit Provider Surgery
PROC: 0DJ08ZZ Inspection of Upper Intestinal Tract, Via Natural or Artificial Opening Endoscopic (ICD-10-PCS; CPT 43235; principal; 2021-08-15 09:30)
DX: K21.00 Gastro-esophageal reflux disease with esophagitis, without bleeding (principal); K44.9 Diaphragmatic hernia without obstruction or gangrene; R11.2 Nausea with vomiting, unspecified; E66.01 Morbid (severe) obesity due to excess calories; Z68.41 Body mass index [BMI] 40.0-44.9, adult; Z98.84 Bariatric surgery status; Z86.73 Personal history of transient ischemic attack (TIA), and cerebral infarction without residual deficits
CPT/HCPCS: 43239; 81025; 88305; 96360; J2704; J7030

== ENCOUNTER → 2021-10-02 08:15 | Outpatient (BNVA) | payer MEDICAID, SELFPAY | PROVIDERS: PCP Nurse Practitioner Family; Referring Provider Nurse Practitioner Family; Visit Provider Anesthesiology Pain Medicine | DX: G89.29 Other chronic pain (principal); M47.812 Spondylosis without myelopathy or radiculopathy, cervical region; M79.622 Pain in left upper arm; M54.9 Dorsalgia, unspecified; M25.561 Pain in right knee; M25.562 Pain in left knee; Z87.891 Personal history of nicotine dependence | CPT/HCPCS: 99204 ==

== ENCOUNTER 2021-10-02 09:40 | Outpatient (CLI) | payer MEDICAID, SELFPAY ==
--- NOTE | 2021-10-02 09:54 | XR_ITS ---
WS: [id number] Cervical spine, 5 views including both obliques, 10/02/2021 Clinical Data: M47.812 - Spondylosis without myelopathy or radiculopathy... Comparison: None. Findings: No new compression fractures are seen. There is disc space narrowing at C5-C6. There is ant erior osteoarthritic change at C6-C7 with a possible old compression fracture of C7. There is neural foraminal narrowing on the left at C5-6. There is no prevertebral soft tissue swelling. The odontoid is unremarkable. The soft tissues of the neck and the lung apices are normal. XR/XR cervical spine 4-5V [id number] Impression: 1. Degenerative disc narrowing at C5-C6 with left foraminal narrowing. 2. Osteoarthritic change at C6-C7.
== END 2021-10-02 09:41 | disposition home or self-care (01) ==
LOC: RAD 09:43
PROVIDERS: PCP Nurse Practitioner Family; Visit Provider Anesthesiology Pain Medicine
DX: M47.812 Spondylosis without myelopathy or radiculopathy, cervical region (principal)
CPT/HCPCS: 72050

== ENCOUNTER 2021-10-08 10:39 | Outpatient (CLI) | payer MEDICAID, SELFPAY ==
--- NOTE | 2021-10-08 10:51 | XR_ITS ---
WS: [id number] XR foot LT min 3V* [id number] REASON FOR EXAM: PAIN IN LEFT FOOT FINDINGS: No fracture or focal bone lesion. Mild to moderate changes of osteoarthritis in the DIP and PIP joints of the second through the fifth toes with moderate joint space narrowing, subchondral sclerosis, and small marginal osteophytes. Milder similar arthropathic changes in the joints of the left great toe. Bony and joint structure of the mid and hindfoot demonstrate no significant abnormality. 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
== END 2021-10-08 10:40 | disposition home or self-care (01) ==
PROVIDERS: PCP Nurse Practitioner Family; Visit Provider Family Medicine
DX: M19.072 Primary osteoarthritis, left ankle and foot (principal)
CPT/HCPCS: 73630

== ENCOUNTER → 2021-10-16 08:46 | Outpatient (BNVA) | payer MEDICAID, SELFPAY | PROVIDERS: PCP Nurse Practitioner Family; Visit Provider Anesthesiology Pain Medicine | DX: G89.29 Other chronic pain (principal); M54.9 Dorsalgia, unspecified; M54.2 Cervicalgia; M79.602 Pain in left arm; M25.561 Pain in right knee; M25.562 Pain in left knee; Z87.891 Personal history of nicotine dependence | CPT/HCPCS: 99214 ==

== ENCOUNTER → 2021-10-30 12:40 | Outpatient (BNVA) | payer MEDICAID, SELFPAY | PROVIDERS: PCP Nurse Practitioner Family; Visit Provider Anesthesiology Pain Medicine | DX: G89.29 Other chronic pain (principal); M54.12 Radiculopathy, cervical region; Z87.891 Personal history of nicotine dependence | CPT/HCPCS: 62321; J1100; J3490 ==

== ENCOUNTER 2021-11-08 10:40 | Outpatient (CLI) | payer MEDICAID, SELFPAY ==
--- NOTE | 2021-11-08 11:48 | XR_ITS ---
WS: [id number] Left hip, 2 views, 11/08/2021 Clinical Data: L JOINT HIP PAIN Comparison: None. Findings: No fractures or dislocations are seen. The hip joint is intact. The soft tissues are not remarkable. The adjacent pelvis is normal. XR/XR hip LT 2-3V wo/w pel* [id number] Impression: Negative left hip. Tonnis classification: grade 0: normal radiographs
== END 2021-11-08 10:41 | disposition home or self-care (01) ==
PROVIDERS: PCP Nurse Practitioner Family; Visit Provider Family Medicine
DX: M25.552 Pain in left hip (principal)
CPT/HCPCS: 73502

== ENCOUNTER → 2021-11-14 11:04 | Outpatient (BNVA) | payer MEDICAID, SELFPAY | PROVIDERS: PCP Nurse Practitioner Family; Visit Provider Anesthesiology Pain Medicine | DX: G89.29 Other chronic pain (principal); M54.2 Cervicalgia; M79.602 Pain in left arm; Z87.891 Personal history of nicotine dependence | CPT/HCPCS: 99214 ==

== ENCOUNTER 2021-12-10 08:49 | Emergency (ER) | payer MEDICAID, SELFPAY ==
[2021-12-10 09:03] VITALS: BP 115/69; PULSE 79; RESP 18; TEMP 36.2; O2SAT 99; BMI 41.0
--- NOTE | 2021-12-10 09:23 | ED_ITS ---
Documented by User: ABNER Lovell 12/10/21 14:57 HPI - Trauma General: Chief Complaint: Trauma Stated Complaint: fall/left hand and arm pain/abdominal pain Time Seen by Provider: 12/10/21 09:09 History of Present Illness: Patient is a 41-year-old female comes to the ED with abdominal pain. Abdominal pain started yesterday and has continued to get worse. Says the abdominal pain is located in the upper abdomen bilaterally. She rates the pain currently a 7 out of 10. Patient also states that on Friday she took her kids [place] the [employer] [place] and fell while skating there. She fell down onto her left hand and is having some left wrist pain as well. Denies any head trauma or loss of consciousness. Denies any nausea, vomiting, diarrhea, dysuria, hematuria, fevers chills. Associated symptoms: Reports abdominal pain; Denies back pain, chest pain, chills, fever(s), headache(s), nausea or vomiting Review of Systems Const: Denies: fever(s), chills or fatigue Eyes: Denies: change in vision or eye discomfort ENMT: Denies: throat pain, odynophagia, nasal discharge or nasal congestion Card: Denies: chest pain, palpitations, edema, swelling of feet/ankles, dyspnea on exertion or orthopnea Resp: Denies: dyspnea, productive cough or non-productive cough GI: Reports: abdominal pain; Denies: nausea, vomiting, diarrhea, constipation or hematochezia : Denies: flank pain, dysuria or hematuria Musc: Reports: extremity pain (Left wrist pain.); Denies: neck pain, back pain or extremity swelling Skin/Breast: Denies: rash or new lesions Neuro: Denies: headache(s), numbness in extremities or weakness in extremities PFSH ED PFSH: Medical History Recurrent UTI Social History Smoking and tobacco status: former smoker Second hand smoke exposure: No Alcohol intake: former History of recent travel: Yes ([place]) Out of state: Yes Female Reproductive History: Date of last menstrual period: 11/30/20 Physical Exam Const: COMMON NORMALS: no acute distress, patient oriented x3, healthy appearing and alert GENERAL APPEARANCE: cooperative and comfortable HENMT: COMMON NORMALS: normocephalic HEAD & SCALP: normocephalic MOUTH: Normal oral and palatal mucosa present THROAT: posterior oropharynx normal and uvula midline Neck/C-Spine: COMMON NORMALS: supple GENERAL: Yes normal visual inspection Resp: COMMON NORMALS: normal respiratory effort, No retractions, No use of accessory muscles and clear to auscultation bilaterally AUSCULTATION: clear to auscultation bilaterally Cardio: COMMON NORMALS: regular rate, regular rhythm, S1 normal heart sound p resent, S2 normal heart sound present, No gallops present (Cardio), No clicks present (Cardio), No murmurs present (Cardio) and Peripheral pulses 2+ throughout RATE: regular rate RHYTHM: regular rhythm HEART SOUNDS: S1 normal heart sound present and S2 normal heart sound present PERIPHERAL PULSES: Peripheral pulses 2+ throughout GI: COMMON NORMALS: Normal to inspection, nondistended, normoactive bowel sounds present, Soft to palpation and no masses PALPATION: Yes Soft to palpation and Yes Tenderness to palpation present (GI) Details: LUQ and RUQ : COMMON NORMALS: Yes no CVA tenderness BLADDER/KIDNEY EXAM: Yes no CVA tenderness Back/Pelvis: COMMON NORMALS: no CVA tenderness Extremity: COMMON NORMALS: normal to inspection and full ROM Neuro: COMMON NORMALS: patient oriented x3 and moves all extremities SENSORIUM/ORIENTATION: Yes alert Skin: GENERAL SKIN EXAM: dry skin Course Vital Signs: Vital signs: Vital Signs Temperature 97.2 F L 12/10/21 09:03 Pulse Rate 79 12/10/21 09:03 Respiratory Rate 18 12/10/21 09:03 Blood Pressure 115/69 12/10/21 09:03 Pulse Oximetry 99 12/10/21 09:03 MDM - Trauma Medical Decision Making Patient is a 41-year-old female comes to the ED with abdominal pain and left wrist pain. Patient obtain left wrist pain a couple days ago when she fell a rollerskating rink. The abdominal pain started yesterday. Abdominal pain located in both right and left upper quadrants. Vitals stable. Patient appears nontoxic and in no acute distress or pain. She has some tenderness that is generalized in the right and left upper quadrants of the abdomen. CBC, CMP showed no acute findings. UA showed signs of UTI. Abdominal CT shows some fatty liver but no other acute findings noted. Patient was diagnosed with abdominal pain and UTI. She was discharged home with a prescription for cefdinir and 8 hydrocodone 5/325 mg tablets for pain. Follow-up with PCP in the next 5 to 7 days for reevaluation. Return to ED precautions given. Patient understood and agreed with plan. Lab Data I reviewed the patient's lab results. : 12/10/21 10:13 12/10/21 10:13 Radiology Impressions Abdomen/Pelvis CT 12/10/21 09:25 IMPRESSION: 1. Mild hepatomegaly and splenomegaly. Recommend correlation with liver function tests. 2. Prior cholecystectomy. Mild intrahepatic biliary duct dilatation with mild dilatation of the common bile duct likely physiologic postcholecystectomy. This can be followed up with MRCP if indicated. 3. Normal renal parenchymal enhancement. No hydronephrosis. 4. Urine distended bladder. 5. Fluid or endometrial thickening in the uterus likely physiologic in a patient this age. 6. Tiny fat-containing umbilical hernia. 7. Prior gastric bypass. Wrist X-Ray 12/10/21 09:25 IMPRESSION: No acute abnormality. Laboratory Results WBC 5.3 10^3/uL (4.0-10.0) 12/10/21 10:13 RBC 4.47 10^6/uL (4.1-5.3) 12/10/21 10:13 Hgb 13.0 g/dL (11.5-15.3) 12/10/21 10:13 Hct 42.2 % (37.0-47.0) 12/10/21 10:13 MCV 94.4 fl (81-99) 12/10/21 10:13 MCH 29.1 pg (28.0-34.0) 12/10/21 10:13 MCHC 30.8 g/dL (30.0-36.0) 12/10/21 10:13 RDW 12.3 % (12.1-15.1) 12/10/21 10:13 Plt Count 208 10^3/cmm (130-400) 12/10/21 10:13 MPV 10.4 fL (7.4-10.4) 12/10/21 10:13 Neut % (Auto) 48.9 % 12/10/21 10:13 Lymph % (Auto) 36.5 % 12/10/21 10:13 [place] % (Auto) 7.5 % 12/10/21 10:13 Eos % (Auto) 6.0 % 12/10/21 10:13 Baso % (Auto) 0.9 % 12/10/21 10:13 Neut # (Auto) 2.60 10^3/uL (1.8-7.7) 12/10/21 10:13 Lymph # (Auto) 1.9 10^3/uL (0.8-4.8) 12/10/21 10:13 [place] # (Auto) 0.4 10^3/uL (0.2-0.9) 12/10/21 10:13 Eos # (Auto) 0.3 10^3/uL (0.0-0.8) 12/10/21 10:13 Baso # (Auto) 0.1 10^3/uL (0.0-0.1) 12/10/21 10:13 Nucleated RBC % (auto) 0 % 12/10/21 10:13 Nucleated RBCs # 0.0 /100WBC 12/10/21 10:13 Sodium 137 mmol/L (136-145) 12/10/21 10:13 Potassium 4.5 mmol/L (3.5-5.1) 12/10/21 10:13 Chloride 103 mmol/L (98-107) 12/10/21 10:13 Carbon Dioxide 25 mmol/L (22-29) 12/10/21 10:13 Anion Gap 13.5 (5-19) 12/10/21 10:13 BUN 13 mg/dL (6-20) 12/10/21 10:13 Creatinine 0.9 mg/dL (0.5-0.9) 12/10/21 10:13 GFR Calculation 68.7 mL/min (90-130) L 12/10/21 10:13 Glucose 97 mg/dL (65-115) 12/10/21 10:13 Calculated Osmolality 284 mOsm/kg (285-295) L 12/10/21 10:13 Calcium 8.7 mg/dL (8.5-10.5) 12/10/21 10:13 Total Bilirubin 0.2 mg/dL (0.15-1.2) 12/10/21 10:13 AST 22 U/L (0-32) 12/10/21 10:13 ALT 16 U/L (0-33) 12/10/21 10:13 Alkaline Phosphatase 42 IU/L (35-105) 12/10/21 10:13 Total Protein 6.4 g/dL (6.6-8.7) L 12/10/21 10:13 Albumin 4.1 g/dL (3.5-5.2) 12/10/21 10:13 Globulin 2.3 g/dL (1.3-4.6) 12/10/21 10:13 Lipase 38 U/L (13-60) 12/10/21 10:13 HCG, Qual Negative (Negative) 12/10/21 10:13 Urine Color Yellow (Yellow) 12/10/21 09:33 Urine Appearance Clear (CLEAR) 12/10/21 09:33 Urine pH 5 (5-7) 12/10/21 09:33 Ur Specific Hancock 1.020 (1.005-1.030) 12/10/21 09:33 Urine Protein Trace (Negative) 12/10/21 09:33 Urine Glucose (UA) Norm (Normal) 12/10/21 09:33 Urine Ketones 1+ (Negative) H 12/10/21 09:33 Urine Blood Neg (Negative) 12/10/21 09:33 Urine Nitrate Positive (Negative) H 12/10/21 09:33 Urine Bilirubin Neg (Negative) 12/10/21 09:33 Urine Urobilinogen Norm mg/dL (Negative) 12/10/21 09:33 Ur Leukocyte Esterase Trace (Negative) H 12/10/21 09:33 Urine RBC None /hpf (0-2) 12/10/21 09:33 Urine WBC 5-10 /hpf (0-5) H 12/10/21 09:33 Ur Squamous Epith Cells 0-4 /hpf (0-5) H 12/10/21 09:33 Amorphous Sediment Not Reportable 12/10/21 09:33 Urine Bacteria 4+ /hpf (NONE) H 12/10/21 09:33 Discharge Plan Discharge Patient Disposition: Home Clinical Impression: Abdominal pain Qualifiers: Abdominal location: upper abdomen, unspecified Qualified Code(s): R10.10 - Upper abdominal pain, unspecified UTI (urinary tract infection) Qualifiers: Urinary tract infection type: acute cystitis Hematuria presence: with hematuria Qualified Code(s): N30.01 - Acute cystitis with hematuria Condition: Stable Prescriptions: New cefdinir 300 mg capsule 300 mg PO BID 10 Days Qty: 20 0RF No Action pantoprazole 40 mg tablet,delayed release (DR/EC) 40 mg PO DAILY 30 Days Qty: 30 3RF trazodone 50 mg tablet 50 - 100 mg PO BEDTIME PRN (Reason: Sleep) 0RF cetirizine 10 mg tablet 10 mg PO DAILY 0RF Tylenol Ex Str Rapid Release 500 mg Tablet 1,000 mg PO Q6H PRN (Reason: Pain) 0RF Lactaid 3,000 unit Tablet 6,000 unit PO DAILY 0RF ondansetron 4 mg tablet,disintegrating 4 mg PO Q6H PRN (Reason: Nausea And Vomiting) 0RF gabapentin 300 mg capsule 300 mg PO DAILY@02 0RF Discharge Orders: Discharge ED (Routine); Ordered 12/10/21 Ordered By: Zhang Beltre Referrals: Gini Driscoll FNP [Primary Care Provider] - Discharge Diet: Advance as tolerated Discharge Activity: Increase activity as tolerated Patient Instructions: Urinary Tract Infection in Women (ED), Abdominal Pain (ED), Opioid Safety Activity Restrictions/Additional Instructions: Follow-up with medical provider as directed in the next 7 to 10 days for reevaluation. Take medications as prescribed. Drink plenty of fluids and stay hydrated. Return to the ER or your medical provider if condition worsens. Please read and understand discharge instructions. Thank you for choosing [facility] for your healthcare needs today. Please realize this is an emergency room and that we are providing you with a medical screening exam and this may not be complete and all inclusive of all the testing and or work up that you may need to determine your ailment or severity of your illness. It is very important that you follow up as instructed or that you return to the Emergency Department should you have concerns or if your condition changes or worsens in any way. Coding Level of Care Code ED Adjuster And Inspector for Chg Fwd Exam Comprehensive Documented by User: Nacho Evans DO 12/10/21 17:50 HPI - Trauma General: Chief Complaint: Trauma Stated Complaint: fall/left hand and arm pain/abdominal pain Time Seen by Provider: 12/10/21 09:09 [facility] ED PFSH: Medical History Recurrent UTI Social History Smoking and tobacco status: former smoker Second hand smoke exposure: No Alcohol intake: former History of recent travel: Yes ([place]) Out of state: Yes Course Vital Signs: Vital signs: Vital Signs Temperature 97.2 F L 12/10/21 09:03 Pulse Rate 79 12/10/21 09:03 Respiratory Rate 18 12/10/21 09:03 Blood Pressure 115/69 12/10/21 09:03 Pulse Oximetry 99 12/10/21 09:03 MDM - Trauma Medical Decision Making Patient is a 41-year-old female comes to the ED with abdominal pain and left wrist pain. Patient obtain left wrist pain a couple days ago when she fell a rollerskating rink. The abdominal pain started yesterday. Abdominal pain located in both right and left upper quadrants. Vitals stable. Patient appears nontoxic and in no acute distress or pain. She has some tenderness that is generalized in the right and left upper quadrants of the abdomen. CBC, CMP showed no acute findings. UA showed signs of UTI. Abdominal CT shows some fatty liver but no other acute findings noted. Patient was diagnosed with abdominal pain and UTI. She was discharged home with a prescription for cefdinir and 8 hydrocodone 5/325 mg tablets for pain. Follow-up with PCP in the next 5 to 7 days for reevaluation. Return to ED precautions given. Patient understood and agreed with plan. Chart reviewed and patient discussed with midlevel. Agree with assessment and plan. Lab Data : 12/10/21 10:13 12/10/21 10:13 Radiology Impressions Abdomen/Pelvis CT 12/10/21 09:25 IMPRESSION: 1. Mild hepatomegaly and splenomegaly. Recommend correlation with liver function tests. 2. Prior cholecystectomy. Mild intrahepatic biliary duct dilatation with mild dilatation of the common bile duct likely physiologic postcholecystectomy. This can be followed up with MRCP if indicated. 3. Normal renal parenchymal enhancement. No hydronephrosis. 4. Urine distended bladder. 5. Fluid or endometrial thickening in the uterus likely physiologic in a patient this age. 6. Tiny fat-containing umbilical hernia. 7. Prior gastric bypass. Wrist X-Ray 12/10/21 09:25 IMPRESSION: No acute abnormality. Laboratory Results WBC 5.3 10^3/uL (4.0-10.0) 12/10/21 10:13 RBC 4.47 10^6/uL (4.1-5.3) 12/10/21 10:13 Hgb 13.0 g/dL (11.5-15.3) 12/10/21 10:13 Hct 42.2 % (37.0-47.0) 12/10/21 10:13 MCV 94.4 fl (81-99) 12/10/21 10:13 MCH 29.1 pg (28.0-34.0) 12/10/21 10:13 MCHC 30.8 g/dL (30.0-36.0) 12/10/21 10:13 RDW 12.3 % (12.1-15.1) 12/10/21 10:13 Plt Count 208 10^3/cmm (130-400) 12/10/21 10:13 MPV 10.4 fL (7.4-10.4) 12/10/21 10:13 Neut % (Auto) 48.9 % 12/10/21 10:13 Lymph % (Auto) 36.5 % 12/10/21 10:13 [place] % (Auto) 7.5 % 12/10/21 10:13 Eos % (Auto) 6.0 % 12/10/21 10:13 Baso % (Auto) 0.9 % 12/10/21 10:13 Neut # (Auto) 2.60 10^3/uL (1.8-7.7) 12/10/21 10:13 Lymph # (Auto) 1.9 10^3/uL (0.8-4.8) 12/10/21 10:13 [place] # (Auto) 0.4 10^3/uL (0.2-0.9) 12/10/21 10:13 Eos # (Auto) 0.3 10^3/uL (0.0-0.8) 12/10/21 10:13 Baso # (Auto) 0.1 10^3/uL (0.0-0.1) 12/10/21 10:13 Nucleated RBC % (auto) 0 % 12/10/21 10:13 Nucleated RBCs # 0.0 /100WBC 12/10/21 10:13 Sodium 137 mmol/L (136-145) 12/10/21 10:13 Potassium 4.5 mmol/L (3.5-5.1) 12/10/21 10:13 Chloride 103 mmol/L (98-107) 12/10/21 10:13 Carbon Dioxide 25 mmol/L (22-29) 12/10/21 10:13 Anion Gap 13.5 (5-19) 12/10/21 10:13 BUN 13 mg/dL (6-20) 12/10/21 10:13 Creatinine 0.9 mg/dL (0.5-0.9) 12/10/21 10:13 GFR Calculation 68.7 mL/min (90-130) L 12/10/21 10:13 Glucose 97 mg/dL (65-115) 12/10/21 10:13 Calculated Osmolality 284 mOsm/kg (285-295) L 12/10/21 10:13 Calcium 8.7 mg/dL (8.5-10.5) 12/10/21 10:13 Total Bilirubin 0.2 mg/dL (0.15-1.2) 12/10/21 10:13 AST 22 U/L (0-32) 12/10/21 10:13 ALT 16 U/L (0-33) 12/10/21 10:13 Alkaline Phosphatase 42 IU/L (35-105) 12/10/21 10:13 Total Protein 6.4 g/dL (6.6-8.7) L 12/10/21 10:13 Albumin 4.1 g/dL (3.5-5.2) 12/10/21 10:13 Globulin 2.3 g/dL (1.3-4.6) 12/10/21 10:13 Lipase 38 U/L (13-60) 12/10/21 10:13 HCG, Qual Negative (Negative) 12/10/21 10:13 Urine Color Yellow (Yellow) 12/10/21 09:33 Urine Appearance Clear (CLEAR) 12/10/21 09:33 Urine pH 5 (5-7) 12/10/21 09:33 Ur Specific [place] 1.020 (1.005-1.030) 12/10/21 09:33 Urine Protein Trace (Negative) 12/10/21 09:33 Urine Glucose (UA) Norm (Normal) 12/10/21 09:33 Urine Ketones 1+ (Negative) H 12/10/21 09:33 Urine Blood Neg (Negative) 12/10/21 09:33 Urine Nitrate Positive (Negative) H 12/10/21 09:33 Urine Bilirubin Neg (Negative) 12/10/21 09:33 Urine Urobilinogen Norm mg/dL (Negative) 12/10/21 09:33 Ur Leukocyte Esterase Trace (Negative) H 12/10/21 09:33 Urine RBC None /hpf (0-2) 12/10/21 09:33 Urine WBC 5-10 /hpf (0-5) H 12/10/21 09:33 Ur Squamous Epith Cells 0-4 /hpf (0-5) H 12/10/21 09:33 Amorphous Sediment Not Reportable 12/10/21 09:33 Urine Bacteria 4+ /hpf (NONE) H 12/10/21 09:33 Discharge Plan Discharge Patient Disposition: Home Clinical Impression: Abdominal pain Qualifiers: Abdominal location: upper abdomen, unspecified Qualified Code(s): R10.10 - Upper abdominal pain, unspecified UTI (urinary tract infection) Qualifiers: Urinary tract infection type: acute cystitis Hematuria presence: with hematuria Qualified Code(s): N30.01 - Acute cystitis with hematuria Condition: Stable Prescriptions: New cefdinir 300 mg capsule 300 mg PO BID 10 Days Qty: 20 0RF No Action pantoprazole 40 mg tablet,delayed release (DR/EC) 40 mg PO DAILY 30 Days Qty: 30 3RF trazodone 50 mg tablet 50 - 100 mg PO BEDTIME PRN (Reason: Sleep) 0RF cetirizine 10 mg tablet 10 mg PO DAILY 0RF Tylenol Ex Str Rapid Release 500 mg Tablet 1,000 mg PO Q6H PRN (Reason: Pain) 0RF Lactaid 3,000 unit Tablet 6,000 unit PO DAILY 0RF ondansetron 4 mg tablet,disintegrating 4 mg PO Q6H PRN (Reason: Nausea And Vomiting) 0RF gabapentin 300 mg capsule 300 mg PO DAILY@02 0RF Discharge Orders: Discharge ED (Routine); Ordered 12/10/21 Ordered By: Zhang Beltre Referrals: Gini Driscoll FNP [Primary Care Provider] - Discharge Diet: Advance as tolerated Discharge Activity: Increase activity as tolerated Patient Instructions: Urinary Tract Infection in Women (ED), Abdominal Pain (ED), Opioid Safety Activity Restrictions/Additional Instructions: Follow-up with medical provider as directed in the next 7 to 10 days for reevaluation. Take medications as prescribed. Drink plenty of fluids and stay hydrated. Return to the ER or your medical provider if condition worsens. Please read and understand discharge instructions. Thank you for choosing [facility] for your healthcare needs today. Please realize this is an emergency room and that we are providing you with a medical screening exam and this may not be complete and all inclusive of all the testing and or work up that you may need to determine your ailment or severity of your illness. It is very important that you follow up as instructed or that you return to the Emergency Department should you have concerns or if your condition changes or worsens in any way. Coding Level of Care Code ED Adjuster And Inspector for Joshua Fwd Exam Comprehensive
--- NOTE | 2021-12-10 09:25 | CT_ITS ---
WS: [id number] CT ABDOMEN PELVIS TECHNIQUE: Contrast-enhanced CT of the abdomen and pelvis with coronal and sagittal reformatted image s. CLINICAL INFORMATION: abdominal pain-upper abdomen bilaterally COMPARISON: None. DLP: 1910.[address] scans at [facility] use at least one of these dose optimization techniques: automated e xposure control; mA and/or kV adjustment per patient size (includes targeted exams where dose is matc hed to clinical indication); or iterative reconstruction. FINDINGS: Mild hepatomegaly. Mild splenomegaly. Prior gastric bypass. Mild intrahepatic biliary ductal dilatati on. Mild dilatation of the common bile duct measuring 9 mm which tapers normally distally. No visuali zed calculi. This can be followed up with MRCP if indicated. Normal pancreatic parenchymal enhancemen t. Adrenal glands are normal. Normal renal parenchymal enhancement. No hydronephrosis. Lung bases are well aerated. Normal caliber abdominal aorta. Adrenal glands are normal. No hydronephr osis in either kidney. Urine distended bladder. No evidence of small or large bowel obstruction. Fluid or endometrial thicke gali in the uterus likely physiologic. Tiny fat-containing umbilical hernia. CT/CT abdomen pelvis w con* [id number] IMPRESSION: 1. Mild hepatomegaly and splenomegaly. Recommend correlation with liver functi on tests. 2. Prior cholecystectomy. Mild intrahepatic biliary duct dilatation with mild dilatation of the common bile duct likely physiologic postcholecystectomy. This can be followed up with MRCP if indicated. 3. Normal renal parenchymal enhancement. No hydronephrosis. 4. Urine distended bladder. 5. Fluid or endometrial thickening in the uterus likely physiologic in a patie nt this age. 6. Tiny fat-containing umbilical hernia. 7. Prior gastric bypass.
--- NOTE | 2021-12-10 09:25 | XR_ITS ---
WS: [id number] XR wrist LT min 3V* [id number] REASON FOR EXAM: fall while roller skating FINDINGS: No fracture or focal bone lesion. Joint spaces of the left wrist are intact and well preserved. No soft tissue abnormality. XR/XR wrist LT min 3V* [id number] IMPRESSION: No acute abnormality.
[2021-12-10 09:58] LABS: Blood Urine Neg (Negative); Glucose Urine UA Norm (Normal); Ketones Urine 1+ (Negative); Protein Urine Trace (Negative); Urine Appearance Clear (CLEAR); Urine Color Yellow (Yellow); pH Urine 5 (5-7)
[2021-12-10 09:59] LABS: Add Urine Microscopic? YES; Bacteria Urine 4+ /hpf; Bilirubin Urine Neg (Negative); Leukocyte Esterase Urine Trace (Negative); Nitrate Urine Positive (Negative); Squamous Epithelial Cell Urine 0-4 /hpf (0-5); Urobilinogen Urine Norm (Negative)
[2021-12-10 10:00] LABS: Add Urine Culture? Yes
[2021-12-10 10:42] LABS: Basophils # 0.1 10^3/uL (0.0-0.1); Basophils % 0.9 %; Eosinophils # 0.3 10^3/uL (0.0-0.8); Hematocrit 42.2 % (37.0-47.0); Lymphocytes # 1.9 10^3/uL (0.8-4.8); Lymphocytes % 36.5 %; Mean Corpuscular HGB Conc 30.8 g/dL (30.0-36.0); Mean Corpuscular Hemoglobin 29.1 pg (28.0-34.0); Mean Corpuscular Volume 94.4 fl (81-99); Mean Platelet Volume 10.4 fL (7.4-10.4); Monocytes # 0.4 10^3/uL (0.2-0.9); Monocytes % 7.5 %; Neutrophils % 48.9 %; Nucleated Red Blood Cells % 0 %; Platelet Count 208 10^3/cmm (130-400); Red Blood Count 4.47 10^6/uL (4.1-5.3); Red Cell Distribution Width 12.3 % (12.1-15.1); White Blood Count 5.3 10^3/uL (4.0-10.0)
[2021-12-10 11:22] LABS: HCG, Serum Qual Negative (Negative)
[2021-12-10 11:27] LABS: Albumin Level 4.1 g/dL (3.5-5.2); Alkaline Phosphatase 42 IU/L (35-105); Blood Urea Nitrogen 13 mg/dL (6-20); Calcium 8.7 mg/dL (8.5-10.5); Carbon Dioxide 25 mmol/L (22-29); Chloride 103 mmol/L (98-107); Globulin 2.3 g/dL (1.3-4.6); Glomerular Filtration Rate 68.7 mL/min (90-130); Glucose 97 mg/dL (65-115); Lipase 38 U/L (13-60); Osmolality Calculated 284 mOsm/kg (285-295); Sodium 137 mmol/L (136-145); Total Bilirubin 0.2 mg/dL (0.15-1.2); Total Protein 6.4 g/dL (6.6-8.7)
[2021-12-10] MEDS: iohexol 300 mg/mL 100 mL Btl IV (11:43)
[2021-12-10 11:53] LABS: Alanine Aminotransferase 16 U/L (0-33); Anion Gap 13.5 (5-19); Aspartate Amino Transferase 22 U/L (0-32); Potassium 4.5 mmol/L (3.5-5.1)
== END 2021-12-10 12:48 | disposition home or self-care (01) ==
PROVIDERS: Emergency Provider Physician Assistant; PCP Nurse Practitioner Family
DX: N30.01 Acute cystitis with hematuria (principal); M25.532 Pain in left wrist
CPT/HCPCS: 73110; 74177; 80053; 81001; 83690; 84703; 85025; 87077; 87086; 87186; 99283; Q9967

== ENCOUNTER → 2021-12-24 09:16 | Outpatient (BNVA) | payer MEDICAID, SELFPAY | PROVIDERS: PCP Nurse Practitioner Family; Visit Provider Anesthesiology Pain Medicine | DX: G89.29 Other chronic pain (principal); M54.2 Cervicalgia; M54.9 Dorsalgia, unspecified; M79.602 Pain in left arm; M25.561 Pain in right knee; M25.562 Pain in left knee; Z87.891 Personal history of nicotine dependence; Z79.891 Long term (current) use of opiate analgesic | CPT/HCPCS: 99214 ==

== ENCOUNTER → 2022-01-28 09:14 | Outpatient (BNVA) | payer MEDICAID, SELFPAY | PROVIDERS: PCP Nurse Practitioner Family; Visit Provider Anesthesiology Pain Medicine | DX: G89.29 Other chronic pain (principal); M54.2 Cervicalgia; M79.602 Pain in left arm; M54.9 Dorsalgia, unspecified; M25.561 Pain in right knee; M25.562 Pain in left knee; Z87.891 Personal history of nicotine dependence | CPT/HCPCS: 99213 ==

== ENCOUNTER → 2022-03-27 08:44 | Outpatient (BNVA) | payer MEDICAID, SELFPAY | PROVIDERS: PCP Nurse Practitioner Family; Visit Provider Anesthesiology Pain Medicine | DX: G89.29 Other chronic pain (principal); M54.9 Dorsalgia, unspecified; M54.2 Cervicalgia; M79.602 Pain in left arm; M25.561 Pain in right knee; M25.562 Pain in left knee; Z87.891 Personal history of nicotine dependence | CPT/HCPCS: 99212 ==

== ENCOUNTER 2022-10-04 14:01 | Outpatient (CLI) | payer MEDICAID, SELFPAY ==
--- NOTE | 2022-10-04 14:09 | XR_ITS ---
WS: [id number] Exam: XR lumbar spine 6V w f/e [id number] Date/Time of Exam: 10/04/2022 2:10 PM Reason For Exam: BACK PAIN CHRONIC No acute fracture or dislocation. No flexion or extension instability identified. Disc spaces are pre served. Posterior elements are intact. Facet DJD at L4-5 and L5-S1. Normal paraspinal soft tissues. I ncreased lumbar lordosis. XR/XR lumbar spine 6V w f/e [id number] IMPRESSION: 1. No fracture or malalignment. No instability. 2. Facet DJD at L4-5 and L5-S1. Mildly exaggerated lumbar lordosis.
--- NOTE | 2022-10-04 14:09 | XR_ITS ---
WS: [id number] Exam: XR hip RT 2-3V wo/w pel* [id number] Date/Time of Exam: 10/04/2022 2:10 PM Reason For Exam: STRAIN OF MUSCLE No fracture or dislocation. The joint compartment is well maintained. Normal soft tissues. XR/XR hip RT 2-3V wo/w pel* [id number] IMPRESSION: 1. Normal right hip.
== END 2022-10-04 14:02 | disposition home or self-care (01) ==
LOC: RAD 14:04
PROVIDERS: PCP Nurse Practitioner Family; Visit Provider Family Medicine
DX: S76.011A Strain of muscle, fascia and tendon of right hip, initial encounter (principal); M47.896 Other spondylosis, lumbar region; M47.897 Other spondylosis, lumbosacral region; X58.XXXA Exposure to other specified factors, initial encounter
CPT/HCPCS: 72114; 73502

== ENCOUNTER 2022-10-22 00:28 | Emergency (ER) | payer MEDICAID, SELFPAY ==
--- NOTE | 2022-10-22 00:31 | W.ED.URI ---
HPI - URI/Sore Throat General: Chief Complaint: Upper Respiratory Infection Stated Complaint: Sore throat Time Seen by Provider: 10/22/22 00:29 History of Present Illness: 42-year-old female comes in tonight with complaints of sore throat starting this evening. Patient appears nontoxic. Patient appears no acute distress. Patient's kids were also ill. Associated symptoms: Deny chest pain, fever(s) or vomiting Review of Systems Const: Denies: fever(s) ENMT: Reports: throat pain Card: Denies: chest pain Resp: Denies: dyspnea or productive cough GI: Denies: vomiting Skin/Breast: Denies: rash PFSH ED PFSH: Medical History History of revision of total replacement of right knee joint Recurrent UTI Surgical History History of cholecystectomy History of gastric bypass History of right knee surgery Hx of tubal ligation Social History Smoking and tobacco status: former smoker Second hand smoke exposure: No Alcohol intake: current Alcohol intake frequency: holidays/special occasions only Alcohol type: hard liquor History of recent travel: No Female Reproductive History: Date of last menstrual period: 11/30/20 Physical Exam Const: COMMON NORMALS: alert HENMT: COMMON NORMALS: normocephalic HEAD & SCALP: normocephalic NOSE: Normal nares present THROAT: posterior oropharynx normal Resp: COMMON NORMALS: normal respiratory effort and clear to auscultation bilaterally AUSCULTATION: clear to auscultation bilaterally Cardio: COMMON NORMALS: regular rate and regular rhythm RATE: regular rate RHYTHM: regular rhythm Extremity: COMMON NORMALS: normal to inspection Neuro: SENSORIUM/ORIENTATION: Yes alert Skin: COMMON NORMALS: no rashes or lesions noted GENERAL SKIN EXAM: no rashes or lesions noted Course Vital Signs: Vital signs: Vital Signs Temperature 98.1 F 10/22/22 00:44 Pulse Rate 76 10/22/22 00:44 Respiratory Rate 16 10/22/22 00:44 Blood Pressure 108/60 10/22/22 00:44 Pulse Oximetry 96 10/22/22 00:44 Oxygen Delivery Me thod 10/22/22 00:44 MDM - URI/Sore Throat Medical Decision Making 42-year-old female comes in today for complaints of sore throat starting this evening. On exam patient's posterior pharynx is pink and moist with no signs of redness or erythema. No anterior lymphadenopathy is noted. Lungs are clear to auscultation. No edema is noted in the extremities. Vital signs are normal. Differential diagnosis includes upper respiratory infection, strep pharyngitis, other viral syndrome. Mother strep test was negative although daughter's strep test was positive. Recommended mother monitor for worsening symptoms such as fever or worsening pain and then to start antibiotic. Prescription for amoxicillin was written to cover. Mother reported understanding agreed to plan. Lab Data Laboratory Results Group A Strep Rapid Negative (Negative) 10/22/22 00:55 Discharge Plan Discharge Patient Disposition: Home Clinical Impression: Upper respiratory infection Condition: Stable Prescriptions: New amoxicillin 500 mg capsule 1,000 mg PO BID 7 Days Qty: 28 0RF No Action pimecrolimus [Elidel] 1 % cream 1 applic topical BID Qty: 30 4RF Rx Instructions: to eyelid and behind ear prn ciclopirox 0.77 % cream 1 applic topical BID Qty: 90 4RF Rx Instructions: to skin folds prn azithromycin [Zithromax] 500 mg tablet 500 mg PO DAILY 5 Days Qty: 5 0RF pantoprazole 40 mg tablet,delayed release (DR/EC) 40 mg PO DAILY 30 Days Qty: 30 3RF triamcinolone acetonide 0.1 % ointment 1 applic topical BID Qty: 80 0RF Rx Instructions: apply to affected area no more than 2 weeks per month. not for face trazodone 50 mg tablet 50 - 100 mg PO BEDTIME PRN (Reason: Sleep) cetirizine 10 mg tablet 10 mg PO DAILY Lactaid 3,000 unit Tablet 6,000 unit PO DAILY ondansetron 4 mg tablet,disintegrating 4 mg PO Q6H PRN (Reason: Nausea And Vomiting) Discharge Orders: Discharge ED (Routine); Ordered 10/22/22 Ordered By: David Black Referrals: Gini Driscoll FNP [Primary Care Provider] - Discharge Diet: Usual diet Discharge Activity: Increase activity as tolerated Patient Instructions: Pharyngitis (ED) Activity Restrictions/Additional Instructions: Home and rest. Drink plenty of fluids. Use acetaminophen and ibuprofen for pain and discomfort. Take antibiotics as directed. Follow-up with primary care for further instruction. 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
[2022-10-22 00:44] VITALS: BP 108/60; PULSE 76; RESP 16; TEMP 36.7; O2SAT 96; BMI 40.3
[2022-10-22 01:20] LABS: Rapid Strep A Test Negative (Negative)
== END 2022-10-22 01:32 | disposition home or self-care (01) ==
PROVIDERS: Emergency Provider Nurse Practitioner Family; PCP Nurse Practitioner Family
DX: J06.9 Acute upper respiratory infection, unspecified (principal); Z87.891 Personal history of nicotine dependence
CPT/HCPCS: 87081; 87880; 99283

== ENCOUNTER 2022-11-05 17:54 | Outpatient (CLI) | payer MEDICAID, SELFPAY ==
--- NOTE | 2022-11-05 18:04 | XR_ITS ---
WS: [id number] XR cervical spine 3V* [id number] REASON FOR EXAM: NECK PAIN FINDINGS: Slight reversal of the normal lordosis of the cervical spine. Normal odontoid. Vertebral bodies C2-C6 demonstrate no significant abnormality. Compression deformity of the superior endplate of C7 which likely corresponds to history of previous trauma. Moderate narrowing of the C5-C6 disc space. 1.5 mm of anterolisthesis of C6 in relation to C5. 1 mm of anterolisthesis of C4 in relation to C5. XR/XR cervical spine 3V* [id number] IMPRESSION: Degenerative spondylosis and posttraumatic changes of the cervical spine as abo ve. The cervical spine appears unchanged compared to 10/02/2021.
== END 2022-11-05 17:55 | disposition home or self-care (01) ==
LOC: RAD 17:54
PROVIDERS: PCP Nurse Practitioner Family; Visit Provider Nurse Practitioner Family
DX: M47.812 Spondylosis without myelopathy or radiculopathy, cervical region (principal)
CPT/HCPCS: 72040

== ENCOUNTER 2022-11-25 15:30 | Outpatient (CLI) | payer MEDICAID, SELFPAY ==
--- NOTE | 2022-11-25 16:00 | MR_ITS ---
WS: [id number] MRI LUMBAR SPINE NONCONTRAST TECHNIQUE: Sagittal T1, T2 and STIR imaging. Axial T1 and T2 imaging. CLINICAL INFORMATION: DEGERATIVE JOINT DISEASE, LUMBAR SPINE COMPARISON: None. FINDINGS: Counting performed from the craniocervical junction. S1 is lumbarized with residual disc sp laura at this level. Recommend plain film correlation prior to surgical intervention. Mild lumbar curve. No acute compression. Disc bulging worse L5-S1 with a small annular fissure. L1-L2: Normal. L2-L3: Normal L3-L4: Tiny LEFT foraminal protrusion with mild LEFT foraminal narrowing. Spinal canal and foramen ar e patent. L4-L5: Mild LEFT and no significant RIGHT foraminal narrowing. Mild facet arthropathy. Spinal canal i s patent L5-S1: Mild annular bulging. Tiny annular tear. Mild central canal stenosis. Slight impingement trave rsing S1 nerve roots bilaterally. Mild LEFT and no significant RIGHT foraminal narrowing. Moderate fa cet arthropathy. Small central disc protrusion cervical spine insurance verification representative imaging at C5-C6 with slight indentation on cervic al cord. Visualized pelvic bony structures: Normal. Paravertebral soft tissues: Normal. MR/MR lumbar spine wo con* [id number] IMPRESSION: 1. Counting performed from the craniocervical junction. S1 is lumbarized with residual disc space at this level. Recommend plain film correlation prior to cancino rgical intervention. 2. Mild annular bulging L5-S1 with a tiny annular tear. Mild central canal tamica nosis. Slight impingement traversing S1 nerve roots bilaterally. 3. Mild LEFT L5-S1 foraminal narrowing. 4. Tiny LEFT foraminal protrusion L3-L4 with mild LEFT foraminal narrowing. 5. Moderate facet arthropathy L5-S1
== END 2022-11-25 15:31 | disposition home or self-care (01) ==
LOC: RAD 15:34
PROVIDERS: PCP Nurse Practitioner Family; Visit Provider Family Medicine
DX: M47.896 Other spondylosis, lumbar region (principal); M51.27 Other intervertebral disc displacement, lumbosacral region; M51.26 Other intervertebral disc displacement, lumbar region
CPT/HCPCS: 72148

== ENCOUNTER 2023-02-07 06:00 | Outpatient (RCR) | payer MEDICAID, SELFPAY | END 2023-03-07 23:59 | disposition home or self-care (01) | LOC: TPT 06:00 | PROVIDERS: PCP Nurse Practitioner Family; Visit Provider Orthopaedic Surgery | DX: M54.9 Dorsalgia, unspecified (principal); G89.29 Other chronic pain | CPT/HCPCS: 97110; 97163 ==

== ENCOUNTER 2023-02-19 16:17 | Emergency (ER) | payer MEDICAID, SELFPAY ==
[2023-02-19 16:22] VITALS: BP 124/77; PULSE 73; RESP 18; TEMP 36.4; O2SAT 98; BMI 41.9
--- NOTE | 2023-02-19 16:29 | ECG_ITS ---
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 Measurements Intervals [place] Rate: 67 P: 64 [place]: 166 QRS: -5 QRSD: 87 T: 48 QT: 369 QTc: 391 Interpretive Statements SINUS RHYTHM LOW QRS VOLTAGE IN PRECORDIAL LEADS [QRS DEFLECTION < 1.0 mV IN CHEST LEADS] Compared to ECG 05/06/2021 09:38:28 Low QRS voltage now present Electronically Signed On 02-19-2023 19:46:09 CDT by Deandre Khalil M.D. [id number] f
--- NOTE | 2023-02-19 16:34 | ED_ITS ---
HPI - General Adult General: Chief complaint: General Medical Stated complaint: hands changing color Time Seen by Provider: 02/19/23 16:33 Source: patient Mode of arrival: ambulatory History of Present Illness: 43-year-old female who presents emergency room with complaint of bilateral hand discoloration. She also has a systemic rash which she is just itching she has not really noticed any particular raised redness or erythema she is not noting she is gotten into. Others where she works had noticed her fingers seem discolored as well she says they are not been painful she does not smoke she had previously been diagnosed any connective tissue disease or rainouts phenomenon. She has no pain or tingling to her hands. She has been using [id number] antihistamines with moderate relief for the itching rash but has not really seen anything. Onset (ago): hour(s) Relieving factors: none Exacerbating factors: none Associated symptoms: Deny chest pain, confusion, cough, diaphoresis, decreased appetite, dyspnea, fevers/chills, headache(s), malaise, nausea, rash, palpitations, seizures, short of breath, syncope, vomiting or weakness Treatments prior to arrival: none Review of Systems Const: Denies: fever(s), chills, malaise or diaphoresis ENMT: Denies: throat pain, ear or mastoid pain, nasal discharge or nasal congestion Card: Denies: chest pain, palpitations or syncope Resp: Denies: dyspnea GI: Denies: abdominal pain, nausea or vomiting : Denies: flank pain, difficulty voiding, dysuria, urinary frequency or urinary urgency Skin/Breast: Denies: rash Neuro: Denies: headache(s) or confusion PFSH ED PFSH: Medical History History of revision of total replacement of right knee joint Recurrent UTI Surgical History History of cholecystectomy History of gastric bypass History of right knee surgery Hx of tubal ligation Social History Smoking and tobacco status: former smoker Second hand smoke exposure: No Alcohol intake: current Alcohol intake frequency: holidays/special occasions only Alcohol type: hard liquor Substance/Drug Use: never Physical Exam Const: COMMON NORMALS: no acute distress GENERAL APPEARANCE: cooperative and comfortable ORIENTATION/CONSCIOUSNESS: Yes awake, Yes oriented to person, Yes oriented to place and Yes oriented to time HENMT: COMMON NORMALS: normocephalic, atraumatic and hearing grossly normal bilaterally HEAD & SCALP: normocephalic and atraumatic Resp: COMMON NORMALS: normal respiratory effort, No retractions, No use of accessory muscles and clear to auscultation bilaterally AUSCULTATION: clear to auscultation bilaterally Cardio: COMMON NORMALS: regular rate, regular rhythm and No murmurs present (Cardio) RATE: regular rate RHYTHM: regular rhythm GI: COMMON NORMALS: Soft to palpation and No hepatosplenomegaly present AUSCULTATION: Yes normoactive bowel sounds PALPATION: Yes Soft to palpation, No Tenderness to palpation present (GI), No Guarding due to palpation present (GI) and Yes No hepatosplenomegaly present Extremity: COMMON NORMALS: normal to inspection, capillary refill normal, no clubbing, cyanosis or edema, no calf tenderness and no pedal edema OTHER: Normal capillary refill to the tips of the digits normal sensation no clubbing no edema. Neuro: SENSORIUM/ORIENTATION: Yes oriented to person, Yes oriented to place and Yes oriented to time Skin: COMMON NORMALS: no rashes or lesions noted GENERAL SKIN EXAM: no rashes or lesions noted OTHER: No notable rash on the back or extremities or chest Course Vital Signs: Vital signs: Vital Signs Temperature 97.5 F L 02/19/23 16:22 Pulse Rate 59 L 02/19/23 17:54 Respiratory Rate 14 02/19/23 17:54 Blood Pressure 110/68 02/19/23 17:54 Pulse Oximetry 100 02/19/23 17:54 Oxygen Delivery Me thod Room Air 02/19/23 17:54 MDM - General Adult Medical Decision Making AllergyContinue to use cetirizine can take 10 mg 1 p.o. twice daily as needed. Observe her fingers if they persist can follow-up with her primary care doctor could even consider referral to if becomes more symptomatic otherwise I would recommend observation for now avoid vasoconstricting agents particularly such as cigarette smoke or pseudoephedrine or phenylephrine. Medical Records I reviewed the patient's medical records. Lab Data I reviewed the patient's lab results. Discharge Plan Discharge Patient Disposition: Home Clinical Impression: Raynaud's phenomenon Condition: Stable Prescriptions: No Action pimecrolimus [Elidel] 1 % cream 1 applic topical BID Qty: 30 4RF Rx Instructions: to eyelid and behind ear prn ciclopirox 0.77 % cream 1 applic topical BID Qty: 90 4RF Rx Instructions: to skin folds prn azithromycin [Zithromax] 500 mg tablet 500 mg PO DAILY 5 Days Qty: 5 0RF neomycin-polymyxin B-dexameth [Maxitrol] 3.5mg/mL-10,000 unit/mL-0.1 % drops,suspension 2 drp ophthalmic (eye) Q2H Qty: 5 0RF pantoprazole 40 mg tablet,delayed release (DR/EC) 40 mg PO DAILY 30 Days Qty: 30 3RF triamcinolone acetonide 0.1 % ointment 1 applic topical BID Qty: 80 0RF Rx Instructions: apply to affected area no more than 2 weeks per month. not for face cetirizine 10 mg tablet 10 mg PO DAILY Lactaid 3,000 unit Tablet 6,000 unit PO DAILY ondansetron 4 mg tablet,disintegrating 4 mg PO Q6H PRN (Reason: Nausea And Vomiting) Discharge Orders: Discharge ED (Routine); Ordered 02/19/23 Ordered By: Nacho Evans Referrals: Gini Driscoll FNP [Primary Care Provider] - Discharge Diet: Usual diet Discharge Activity: Increase activity as tolerated Patient Instructions: Opioid Safety, Pain Management Activity Restrictions/Additional Instructions: Recommend you increase your cetirizine to 1 p.o. twice daily as needed for itching. If you continue to have discomfort or discoloration at the fingertips follow-up with your primary care doctor. Coding Level of Care Code ED Registration Specialist for Joshua Matute
[2023-02-19 16:54] VITALS: BP 110/68; PULSE 68; RESP 14; O2SAT 97
[2023-02-19 17:54] VITALS: BP 110/68; PULSE 59; RESP 14; O2SAT 100
== END 2023-02-19 17:59 | disposition home or self-care (01) ==
PROVIDERS: Emergency Provider Family Medicine; PCP Nurse Practitioner Family
DX: I73.00 Raynaud's syndrome without gangrene (principal)
CPT/HCPCS: 93005; 99283

== ENCOUNTER 2023-03-08 06:00 | Outpatient (RCR) | payer MEDICAID, SELFPAY | END 2023-03-28 23:59 | disposition home or self-care (01) | LOC: TPT 06:00 | PROVIDERS: PCP Nurse Practitioner Family; Visit Provider Orthopaedic Surgery | DX: M54.9 Dorsalgia, unspecified (principal); G89.29 Other chronic pain | CPT/HCPCS: 97110 ==

== ENCOUNTER → 2023-11-21 12:47 | Outpatient (BNVA) | payer MEDICAID, SELFPAY | PROVIDERS: PCP Nurse Practitioner Family; Visit Provider Family Medicine | DX: R05.3 Chronic cough (principal) | CPT/HCPCS: 71046 ==

== ENCOUNTER 2023-12-02 13:01 | Outpatient (CLI) | payer MEDICAID, SELFPAY ==
--- NOTE | 2023-12-02 13:00 | MM_ITS ---
WS: [id number] BILATERAL 3D TOMOSYNTHESIS DIGITAL SCREENING MAMMOGRAPHY WITH CAD CLINICAL INFORMATION: SCREENING HISTORY: Screening mammogram. No current complaints. COMPARISON: 2020 TECHNIQUE: Bilateral CC and MLO views. FINDINGS: Scattered fibroglandular densities bilaterally. Vague area of amorphous calcifications upper outer R IGHT breast posterior depth. Recommend further evaluation with magnification views LEFT breast is unremarkable and unchanged compared to previous. IMPRESSION: MM/[place] [id number] BI-RADS: 0-Incomplete: Need additional imaging evaluation FOLLOW UP: Need Additional Imaging Recommend RIGHT breast magnification views of the above described amorphous cinhtia cifications
== END 2023-12-02 13:02 | disposition home or self-care (01) ==
LOC: MOBLMAM 13:06
PROVIDERS: PCP Family Medicine; Visit Provider Family Medicine
DX: Z12.31 Encounter for screening mammogram for malignant neoplasm of breast (principal); Z78.9 Other specified health status; R92.30 Dense breasts, unspecified
CPT/HCPCS: 77063; 77067

== ENCOUNTER 2024-01-30 06:00 | Outpatient (RCR) | payer MEDICAID, SELFPAY | END 2024-02-06 23:59 | disposition home or self-care (01) | LOC: TPT 06:00 | PROVIDERS: Visit Provider Nurse Practitioner Family | DX: M25.511 Pain in right shoulder (principal); G89.29 Other chronic pain | CPT/HCPCS: 97110; 97162 ==

== ENCOUNTER 2024-02-07 06:00 | Outpatient (RCR) | payer MEDICAID, SELFPAY | END 2024-02-20 23:59 | disposition home or self-care (01) | LOC: TPT 06:00 | PROVIDERS: Visit Provider Nurse Practitioner Family | DX: M25.511 Pain in right shoulder (principal); G89.29 Other chronic pain | CPT/HCPCS: 97110 ==

== ENCOUNTER 2024-07-19 12:11 | Outpatient (CLI) | payer MEDICAID, SELFPAY ==
--- NOTE | 2024-07-19 12:15 | MM_ITS ---
WS: [id number] RIGHT 3D TOMOSYNTHESIS DIGITAL MAMMOGRAPHY WITH CAD CLINICAL INFORMATION: ABNORMAL MAMMOGRAM, RT BREAST HISTORY: Magnification views for calcifications COMPARISON: 12/02/2023 TECHNIQUE: 3 views of the right breast were obtained. FINDINGS: Scattered fibroglandular densities of the right breast. No suspicious calcifications are seen today o n the spot magnification views. No other suspicious findings. Recommend return to annual screening ma mmography. MM/MM diag RT tomosynthesis [id number] IMPRESSION: DENSITY: There are scattered areas of fibroglandular density. BI-RADS: 1 - Negative. FOLLOW UP: 1 Year Follow-up Recommend return to annual screening mammography.
== END 2024-07-19 12:12 | disposition home or self-care (01) ==
LOC: RAD 12:12
PROVIDERS: PCP Nurse Practitioner Family; Visit Provider Nurse Practitioner Family
DX: R92.8 Other abnormal and inconclusive findings on diagnostic imaging of breast (principal); R92.321 Mammographic fibroglandular density, right breast
CPT/HCPCS: 77061; G0279